=== PATIENT | male | born 1950 | race Caucasian/White ===

== ENCOUNTER 2023-08-25 12:37 | Inpatient (IN) | payer MEDICARE ==
[2023-08-25 12:51] LABS: Glucose,Whole Blood 105 mg/dL (70-110)
--- NOTE | 2023-08-25 12:58 | ED ---
General Adult HPI - General Stated complaint: POSS stroke Time Seen by Provider: 08/25/23 12:37 Source: patient, RN notes reviewed, old records reviewed - History of Present Illness Initial comments: A 73-year-old male who presents to the emergency department with strokelike symptoms. Patient was last seen normal the evening at 8:00. Family called him today and patient was unable to speak so called the ambulance. When EMS arrived patient was able to dress himself and walk on his own. Patient was unable to answer any questions it appears that he was unable to speak and he could not follow even the simplest commands but he could be guided to do different things as an example walk where they want him to go. Other history is available at this time and family will be coming later - Related Data Home Medications Medication Instructions Recorded Confirmed No Known Home Medications 08/25/23 08/25/23 Allergies Allergy/AdvReac Type Severity Reaction Status Date / Time No Known Allergies Allergy Verified 08/25/23 13:22 Review of Systems ROS Statement: Those systems with pertinent positive or pertinent negative responses have been documented in the HPI. ROS Other: All systems not noted in ROS Statement are negative. General Exam - General Exam Comments Initial Comments: GENERAL: Patient is well-developed and well-nourished. Patient is nontoxic and well- hydrated and is in no acute distress. ENT: Neck is soft and supple. No significant lymphadenopathy is noted. Oropharynx is clear. Moist mucous membranes. Neck has full range of motion without eliciting any pain. EYES: The sclera were anicteric and conjunctiva were pink and moist. Extraocular movements were intact and pupils were equal round and reactive to light. Eyelids were unremarkable. PULMONARY: Unlabored respirations. Good breath sounds bilaterally. No audible rales rhonchi or wheezing was noted. CARDIOVASCULAR: There is a regular rate and rhythm without any murmurs gallops or rubs. ABDOMEN: Soft and nontender with normal bowel sounds. SKIN: Skin is clear with no lesions or rashes and otherwise unremarkable. NEUROLOGIC: Patient is alert and oriented she is not speaking I am unable to evaluate orientation. Cranial nerves II through XII are grossly intact. Motor and sensory are also intact. Patient is unable to speak. Symmetrical smile. Patient does not understand cerebellar testing protocol MUSCULOSKELETAL: Normal extremities with adequate strength and full range of motion. No lower extremity swelling or edema. No calf tenderness. LYMPHATICS: No significant lymphadenopathy is noted PSYCHIATRIC: Unable to assess at this time Course Vital Signs 08/25/23 08/25/23 08/25/23 12:43 12:54 12:58 Temperature 98.1 F Pulse Rate 82 77 Respiratory 19 18 Rate Blood Pressure 158/127 158/127 147/107 O2 Sat by Pulse 98 98 96 Oximetry 08/25/23 08/25/23 08/25/23 13:13 13:28 13:43 Temperature Pulse Rate 68 65 70 Respiratory 18 18 17 Rate Blood Pressure 150/81 148/72 142/76 O2 Sat by Pulse 95 96 94 L Oximetry 08/25/23 08/25/23 08/25/23 13:58 14:13 14:28 Temperature Pulse Rate 74 65 66 Respiratory 17 18 18 Rate Blood Pressure 144/76 155/76 141/97 O2 Sat by Pulse 95 95 94 L Oximetry Medical Decision Making - Medical Decision Making EKG is interpreted by myself. EKG shows a sinus rhythm at 67 bpm KS interval 149 QRS 103 QT interval 375 QTc is 390. Patient EKG shows no ST segment elevation Was pt. sent in by a medical professional or institution ([facility], [employer], urgent care, hospital, or [facility]...) When possible be specific @ -No Did you speak to anyone other than the patient for history (EMS, parent, family, police, friend...)? What history was obtained from this source @ -EMS gave all the history since the patient was aphasic Did you review nursing and triage notes (agree or disagree)? Why? @ -I reviewed and agree with nursing and triage notes Were old charts reviewed (outside hosp., previous admission, EMS record, old EKG, old radiological studies, urgent care reports/EKG's, [facility] records)? Report findings @ -No old charts were reviewed Differential Diagnosis? @ -Differential CVA Ischemic stroke, hemorrhagic stroke, brain tumor, atypical migraine, Wernicke's encephalopathy, seizure, multiple sclerosis, meningitis, encephalitis, hypoglycemia, Guillain-Pineda, electrolytes disturbance, myasthenia gravis.... This is not meant to be an all-inclusive list EKG interpreted by me (3pts min.). @ -As above X-rays interpreted by me (1pt min.). @ -Chest x-ray shows no acute normality CT interpreted by me (1pt min.). @ -CT of the brain a frontal lobe infarct. CTA shows no acute abnormality U/S interpreted by me (1pt. min.). @ -None done What testing was considered but not performed or refused? (CT, X-rays, U/S, labs)? Why? @ -None What meds were considered but not given or refused? Why? @ -None Did you discuss the management of the patient with other professionals (professionals i.e. DrSiva, PA, [employer]ER, lab, RT, psych nurse, rn social services, weigher packing, teacher, juvenile corrections officer, correctional case manager)? Give summary @ -I spoke with Dr. Mi agreed that the patient did not qualify for any intervention he will adjust medical management. I spoke with sound physicians he agreed to admit the patient to the patient I consulted neurology Was smoking cessation discussed for >3mins.? @ -No Was critical care preformed (if so, how long)? @ -35 minutes Were there social determinants of health that impacted care today? How? (Homelessness, low income, unemployed, alcoholism, drug addiction, transporta tion, low edu. Level, literacy, decrease access to med. care, fci, rehab)? @ -No Was there de-escalation of care discussed even if they declined (Discuss DNR or withdrawal of care, Hospice)? DNR status @ -No What co-morbidities impacted this encounter? (DM, HTN, Smoking, COPD, CAD, Cancer, CVA, ARF, Chemo, Hep., AIDS, mental health diagnosis, sleep apnea, morbid obesity)? @ -None Was patient admitted / discharged? Hospital course, mention meds given and route, prescriptions, significant lab abnormalities, going to OR and other pertinent info. @ -Patient had an obvious stroke on the CT. I spoke with the neuro interventionalists and sound physicians patient will be admitted with neurology consult. Undiagnosed new problem with uncertain prognosis? @ -No Drug Therapy requiring intensive monitoring for toxicity (Heparin, Nitro, Insulin, Cardizem)? @ -No Were any procedures done? @ -No Diagnosis/symptom? @ -CVA Acute, or Chronic, or Acute on Chronic? @ -Acute Uncomplicated (without systemic symptoms) or Complicated (systemic symptoms)? @ -Complicated Side effects of treatment? @ -No Exacerbation, Progression, or Severe Exacerbation? @ -No Poses a threat to life or bodily function? How? (Chest pain, [place], [place], pneumonia, PE, COPD, DKA, ARF, appy, cholecystitis, CVA, Diverticulitis, Homicidal, Suicidal, threat to staff... and all critical care pts) @ -Yes this can lead to further stroke and morbidity or mortality - Lab Data Result diagrams: 08/25/23 12:43 Lab Results 08/25/23 08/25/23 08/25/23 Range/Units 12:43 12:43 12:49 WBC 7.1 (3.8-10.6) k/uL RBC 5.24 (4.30-5.90) m/uL Hgb 16.9 (13.0-17.5) gm/dL Hct 52.6 (39.0-53.0) % MCV 100.3 H (80.0-100.0) fL MCH 32.3 (25.0-35.0) pg MCHC 32.2 (31.0-37.0) g/dL RDW 13.5 (11.5-15.5) % Plt Count 130 L (150-450) k/uL MPV 9.2 Neutrophils % 64 % Lymphocytes % 22 % Monocytes % 8 % Eosinophils % 3 % Basophils % 1 % Neutrophils # 4.6 (1.3-7.7) k/uL Lymphocytes # 1.6 (1.0-4.8) k/uL Monocytes # 0.6 (0-1.0) k/uL Eosinophils # 0.2 (0-0.7) k/uL Basophils # 0.1 (0-0.2) k/uL PT 10.9 (10.0-12.5) sec INR 1.0 (<1.2) APTT 20.0 L (22.0-30.0) sec POC Glucose (mg/dL) 105 (70-110) mg/dL POC Glu Dental Appliance Mechanic ID Génesis Bates Troponin I (0.000-0.034) ng/mL 08/25/23 Range/Units 13:32 WBC (3.8-10.6) k/uL RBC (4.30-5.90) m/uL Hgb (13.0-17.5) gm/dL Hct (39.0-53.0) % MCV (80.0-100.0) fL MCH (25.0-35.0) pg MCHC (31.0-37.0) g/dL RDW (11.5-15.5) % Plt Count (150-450) k/uL MPV Neutrophils % % Lymphocytes % % Monocytes % % Eosinophils % % Basophils % % Neutrophils # (1.3-7.7) k/uL Lymphocytes # (1.0-4.8) k/uL Monocytes # (0-1.0) k/uL Eosinophils # (0-0.7) k/uL Basophils # (0-0.2) k/uL PT (10.0-12.5) sec INR (<1.2) APTT (22.0-30.0) sec POC Glucose (mg/dL) (70-110) mg/dL POC Glu Dental Appliance Mechanic ID Troponin I 0.079 H* (0.000-0.034) ng/mL Disposition Clinical Impression: Cerebrovascular accident (CVA) Disposition: ADMITTED IP TO THIS HOSP Referrals: None,Stated [Primary Care Provider] - 1-2 days Time of Disposition: 15:46
[2023-08-25] MEDS: SODIUM CHLORIDE 0.9% 500 ML 500 ML IV STA (13:01)
--- NOTE | 2023-08-25 13:04 | CT ---
EXAMINATION TYPE: CT brain wo con CT DLP: 1113.6 mGycm, Automated exposure control for dose reduction was used. DATE OF EXAM: 08/25/2023 12:58 PM COMPARISON: None. CLINICAL INDICATION:Male, 73 years old with history of Neuro deficit, acute, stroke suspected, CODE S TROKE TECHNIQUE: Brain: Axial CT images of the brain were obtained with coronal and sagittal reformats created and rev iewed. Contrast used: None. Oral contrast used: None. FINDINGS: Brain: Extra-axial spaces: No abnormal extra-axial fluid collections. Ventricular system: Within normal limits Cerebral parenchyma: Lopez-white matter loss of differentiation the left frontal lobe series 202 image 30, No acute intraparenchymal hemorrhage or mass effect. The lopez-white junction is well differenti ated. Cerebellum: Unremarkable. Mass effect: No evidence of midline shift. Intracranial vasculature: Atherosclerotic calcifications of the intracranial vessels. Soft tissues: Normal. Calvarium/osseous structures: No depressed skull fracture. Paranasal sinuses and mastoid air cells: Mild scattered paranasal sinus disease. Visualized orbits: Orbital contents are intact. IMPRESSION: Acute/subacute CVA involving the left frontal lobe. Findings communicated to Dr. Romaine Wilhelm MD on 08/25/2023 1:[address] Karson Galindo.
[2023-08-25 13:08] LABS: Basophils # (A) 0.1 k/uL (0-0.2); Basophils % (A) 1 %; Eosinophils # (A) 0.2 k/uL (0-0.7); Eosinophils % (A) 3 %; HCT 52.6 % (39.0-53.0); HGB 16.9 gm/dL (13.0-17.5); Lymphocytes # (A) 1.6 k/uL (1.0-4.8); Lymphocytes % (A) 22 %; MCH 32.3 pg (25.0-35.0); MCHC 32.2 g/dL (31.0-37.0); MCV 100.3 fL (80.0-100.0); Mean Platelet Volume 9.2; Monocytes # (A) 0.6 k/uL (0-1.0); Monocytes % (A) 8 %; Neutrophils # (A) 4.6 k/uL (1.3-7.7); Neutrophils % (A) 64 %; RBC 5.24 m/uL (4.30-5.90); RDW 13.5 % (11.5-15.5); WBC 7.1 k/uL (3.8-10.6)
--- NOTE | 2023-08-25 13:21 | CT ---
EXAMINATION TYPE: CT angio head neck CT DLP: 401 mGycm, Automated exposure control for dose reduction was used. DATE OF EXAM: 08/25/2023 1:14 PM COMPARISON: Same day CT CLINICAL INDICATION:Male, 73 years old with history of Neuro deficit, acute, stroke suspected; [facility], TECHNIQUE: Axially acquired helical CT angiogram of the head and neck was obtained with contrast. Axi al images are supplemented with 3D reconstructions and MIP images which were post-processed at an in dependent workstation. NASCET criteria used. Contrast used: mL of 65 cc [id number] Oral contrast used: None. FINDINGS: CTA HEAD: No evidence of acute intracranial hemorrhage, mass effect, or midline shift. The ventricles, sulci, a nd cisterns are unremarkable. Mild paranasal sinus mucosal thickening. The visualized portions of the internal carotid arteries, middle cerebral arteries, anterior cerebral arteries, and posterior cerebral arteries are patent. The basilar and vertebral arteries are patent. CTA NECK: Right Carotid System: The common carotid and external carotid arteries are patent. There is less than 25% stenosis at the c arotid bifurcation secondary to calcified/noncalcified plaque. The rest of the internal carotid arter y is patent. Left Carotid System: The common carotid and external carotid arteries are patent. There is less than 25% stenosis at the c arotid bifurcation secondary to calcified/noncalcified plaque. The rest of the internal carotid arter y is patent. Vertebral arteries are patent without evidence hemodynamically significant stenosis. There is a three-vessel aortic arch. The origins of the great vessels are patent. No evidence of hemo dynamically significant stenosis. Upper thorax: Centrilobular paraseptal emphysema changes in the lung apices.r right thyroid 5 mm nodu le. IMPRESSION: 1. No evidence of dissection of the cervical internal carotid arteries or vertebral arteries or any e vidence of significant stenosis at the carotid bifurcations. 2. No evidence of intracranial high-grade stenosis or intracranial aneurysm.
[2023-08-25 13:39] LABS: Prothrombin Time 10.9 sec (10.0-12.5)
[2023-08-25] MEDS ORDERED: ACETAMINOPHEN TAB 325 MG TAB PO PRN (15:30)
[2023-08-25] MEDS ORDERED: NALOXONE 0.4 MG/ML 1 ML VIAL IVP PRN (15:30)
--- NOTE | 2023-08-25 15:30 | XR ---
EXAMINATION TYPE: XR chest 2V DATE OF EXAM: 08/25/2023 3:14 PM CLINICAL INDICATION:Male, 73 years old with history of altered mental status; H COMPARISON: None TECHNIQUE: XR chest 2V Frontal and lateral views of the chest. FINDINGS: Lungs/Pleura: There is no evidence of pleural effusion, focal consolidation, or pneumothorax. Pulmonary vascularity: Unremarkable. Heart/mediastinum: Cardiomediastinal silhouette is unremarkable. Atherosclerotic calcifications are seen in the aorta. Musculoskeletal: No acute osseous pathology. IMPRESSION: No acute cardiopulmonary disease/process.
[2023-08-25 15:55] LABS: ALT 14 U/L (4-49); AST 26 U/L (17-59); African American GFR (CKD) >90 (>60 ml/min/1.73 sqM); Albumin 3.5 g/dL (3.5-5.0); Alkaline Phosphatase 93 U/L (38-126); Anion Gap 5 mmol/L; Blood Urea Nitrogen 12 mg/dL (9-20); Calcium 8.5 mg/dL (8.4-10.2); Carbon Dioxide 19 mmol/L (22-30); Chloride 111 mmol/L (98-107); Creatine Kinase 77 U/L (55-170); Glucose 94 mg/dL (74-99); Non-African American GFR(CKD) >90 (>60 ml/min/1.73 sqM); Potassium 4.9 mmol/L (3.5-5.1); Sodium 135 mmol/L (137-145); Total Bilirubin 0.5 mg/dL (0.2-1.3)
[2023-08-25] MEDS: ASPIRIN 325 MG TAB PO STA (16:05)
[2023-08-25] MEDS: ATORVASTATIN 80 MG TAB PO STA (16:05)
--- NOTE | 2023-08-25 16:09 | P.HPIM ---
History of Present Illness H&P Date: 08/25/23 History of Presenting Illness: Patient is a pleasant 73-year-old male with a past medical history of nicotine dependence approximately 1 pack of cigarettes or more daily for greater than 50 years. He does not follow with a PCP and does not take any medications on a daily basis. Presented to the emergency department via EMS for strokelike symptoms. Patient's last known normal was around 8 PM yesterday evening and this morning his fiNicole wilder, reports that she called him around 11:30 AM and he was unable to speak so she called EMS. Patient was found to have significant aphasia and difficulty following commands. Patient currently denies having any pain and his fiance Nicole reports patient had no complaints prior to going to bed last night and had no noted abnormalities until this morning as stated above. Upon arrival to the hospital patient underwent evaluation in the emergency department. Vital signs upon arrival show blood pressure 158/127, heart rate 82, respiratory rate 19, temp 98.1 F, and SpO2 of 98% on room air. Bzkyf-ab-cfmm glucose 105. EKG was completed showing normal sinus rhythm at 67 bpm with a right bundle branch block. CT brain was completed showing an acute/subacute CVA involving the left frontal lobe. CTA head was negative for acute intracranial process showing no evidence of intracranial high-grade stenosis or intracranial aneurysm. CTA neck showing no evidence of dissection of cervical internal carotid arteries or vertebral arteries or any evidence of significant stenosis at the carotid bifurcations. Labs completed and reviewed. CBC showing macrocytosis with MCV of 100.3 and thrombocytopenia with platelet count of 130. Coagulation profile showing low PTT of 20.0 otherwise normal findings. BMP showing non-anion gap metabolic acidosis with chloride of 111, bicarb of 19, and anion gap of 5. Liver profile unremarkable. Creatinine kinase normal findings at 77. Troponin was elevated at 0.079. Total protein was 6.0. Patient was admitted under our services with consultation to neurology. Review of systems: Limited ROS secondary to patient's mentation, inability to follow commands and significant aphasia. Information obtained from ED documentation and per patient's Nicole coleman. Physical exam: Vital signs reviewed and stable. General: Nontoxic, no distress and appears stated age. Derm: Skin warm and dry, normal coloration for ethnicity. Head: Atraumatic, normocephalic and symmetric. Eyes: EOMs intact, no lid lag, and anicteric sclera Mouth: no lip lesions, mucus membranes moist. Minimal right-sided facial droop noted. Cardiovascular: regular rate and rhythm with normal S1S2, soft systolic murmur, positive posterior tibial pulses bilaterally, and cap refill < 2 seconds. Lungs: Respirations even, regular, and unlabored on room air. Lungs CTA bilaterally, no rhonchi, no rales, no wheezing, and no accessory muscle usage. Abdominal: soft, nontender to palpation, no guarding, no appreciable organomegaly Ext: No gross muscle atrophy, no edema, no contractures. Movement and sensation intact. Neuro: Significant aphasia, with minimal right-sided facial droop. Movement and sensation of bilateral upper and lower extremities appear to be intact, patient unable to follow all commands but was able to move extremities when asked and appeared to have equal and symmetrical movement and strength but did not follow commands such as [id number] or [id number]. Unable to assess for arm drop as patient had difficult time understanding or following commands. Psych: Alert and oriented to person, place, time, and situation. Appropriate and pleasant affect. Assessment and Plan of Care: Acute/subacute CVA of the left frontal lobe with significant speech deficits and difficulties following commands Elevated troponin Thrombocytopenia Non-anion gap metabolic acidosis Nicotine dependence -Consult placed to neurology, discussed plan of care with neurologist, Dr. Stoner. -MRI brain and neck with and without contrast -Echocardiogram -Patient to remain on continuous telemetry monitoring. -Lipid profile and Hgb A1c with A.M labs. -NIH stroke scale with neuro checks every 4 hours and as needed -Aspirin 325 mg p.o. x 1 dose followed by 81 mg daily, Plavix 75 mg daily and atorvastatin 80 mg daily. -Allow for permissive hypertension over next 24 hours. -PT/OT consulted -Speech and language pathologist consulted for evaluation. -Fall precautions and provide pt with assistance as needed. -Will trend troponins. -Order placed for nicotine patch 21 mg daily. Strongly recommend smoking cessation. Data and imaging reviewed: As stated above in HPI The patient is admitted with an anticipated greater than 2 midnight stay for evaluation of acute/subacute CVA CODE STATUS: Full code DVT prophylaxis: Lovenox Discussed with: ED physician, patient, patient's fianc, and neurologist Anticipated discharge date: Pending clinical course Anticipated discharge place: Home versus stroke rehab Patient was seen independently by Nurse Practitioner. This document was prepared using [employer] dictation software. Please allow for errors in cold rolling supervisor while rare they do occur. .Nigel Mcclellan NP rendered care for this patient independently, reviewed the findings and plan as documented in the note above. I did not physically speak with or examine the patient on this date. Past Medical History History of Any Multi-Drug Resistant Organisms: None Reported Past Psychological History: No Psychological Hx Reported Smoking Status: Current every day smoker Past Alcohol Use History: None Reported Past Drug Use History: None Reported Medications and Allergies Home Medications Medication Instructions Recorded Confirmed Type No Known Home Medications 08/25/23 08/25/23 History Allergies Allergy/AdvReac Type Severity Reaction Status Date / Time No Known Allergies Allergy Verified 08/25/23 13:22 Physical Exam Vitals: Vital Signs Temp Pulse Resp BP Pulse Ox 08/25/23 14:28 66 18 141/97 94 L 08/25/23 14:13 65 18 155/76 95 08/25/23 13:58 74 17 144/76 95 08/25/23 13:43 70 17 142/76 94 L 08/25/23 13:28 65 18 148/72 96 08/25/23 13:13 68 18 150/81 95 08/25/23 12:58 77 18 147/107 96 08/25/23 12:54 98.1 F 82 19 158/127 98 08/25/23 12:43 158/127 98 Intake and Output 08/25/23 08/25/23 08/25/23 06:59 14:59 22:59 Other: Weight 77.111 kg Results CBC & Chem 7: 08/25/23 12:43 08/25/23 13:32 Labs: Abnormal Lab Results - Last 24 Hours (Table) 08/25/23 08/25/23 08/25/23 Range/Units 12:43 12:43 13:32 MCV 100.3 H (80.0-100.0) fL Plt Count 130 L (150-450) k/uL APTT 20.0 L (22.0-30.0) sec Troponin I 0.079 H* (0.000-0.034) ng/mL
[2023-08-25] MEDS: CLOPIDOGREL 75 MG TAB PO STA (17:14)
[2023-08-25] MEDS: NICOTINE 21MG/24HR PATCH TRANSDERM SCH (17:17)
--- NOTE | 2023-08-25 18:24 | P.CNNES ---
History of Present Illness Consult date: 08/25/23 Requesting physician: Nigel Mcclellan Reason for Consult: acute/subacute cva History of Present Illness: This is a 73-year-old gentleman who presented emergency department because of speech difficulty. He is accompanied with his fiance who provides the history. It seems the fimeño indicated with him via text around 11:30 in the morning but she stated that she was receiving messages that did not make sense and so she called him and he had severe speech difficulty. She called 911 and they brought him to our facility. Is normal state that she talk to him was around 1 AM today unsure what time he went to bed in which she usually goes to bed at 2 AM but she is unsure. He does not have any history of stroke or TIA in the past.. The fianc he does not have any medical issues and is not on any medication. He smokes a pack a day. No illicit drug use. In our facility some of the workup consisted of: Serum glucose is 94. I reviewed rest of the lab test Troponin is 0.079 and repeat is 1.067 CT of the head is reported as acute/subacute CVA involving the left frontal lobe. I personally reviewed the CT and I do appreciate the changes over the left frontal suggestive of likely stroke. CT angiography of the head and neck is reported as no evidence of dissection of cervical carotid artery or vertebral artery or any evidence of significant stenosis at the carotid bifurcation. No evidence of intracranial high-grade stenosis or intracranial aneurysm. EKG is sinus rhythm. A Code stroke was activated and the ED physician spoke with Dr. Mi (stroke attending) no IV thrombolytic and no intervention. Likely no IV thrombolytics since unknown exact last normal state likely more than 4-1/2 hours from the history. Review of Systems Limited but the positive and negative as per HPI. Past Medical History History of Any Multi-Drug Resistant Organisms: None Reported Past Psychological History: No Psychological Hx Reported Smoking Status: Current every day smoker Past Alcohol Use History: None Reported Past Drug Use History: None Reported Medications and Allergies Home Medications Medication Instructions Recorded Confirmed Type No Known Home Medications 08/25/23 08/25/23 History Allergies Allergy/AdvReac Type Severity Reaction Status Date / Time No Known Allergies Allergy Verified 08/25/23 13:22 Physical Examination - Vital Signs Vital Signs: Vital Signs Temp Pulse Resp BP Pulse Ox 08/25/23 17:20 64 16 162/86 94 L 08/25/23 14:28 66 18 141/97 94 L 08/25/23 14:13 65 18 155/76 95 08/25/23 13:58 74 17 144/76 95 08/25/23 13:43 70 17 142/76 94 L 08/25/23 13:28 65 18 148/72 96 08/25/23 13:13 68 18 150/81 95 08/25/23 12:58 77 18 147/107 96 08/25/23 12:54 98.1 F 82 19 158/127 98 08/25/23 12:43 158/127 98 Intake and Output 08/25/23 08/25/23 08/25/23 06:59 14:59 22:59 Other: Weight 77.111 kg General: Lying in bed and is not in acute distress. HENT: Supple neck. Neuro: Limited. Patient is awake. He is severely aphasia. He would say "Yes". He would follow some simple commands and that is through mimicking movement. Pupils are round, equal and reactive to light. EOM intact and no nystagmus. No facial weakness. Motor: He lifting all extremities above gravity equally. Could not assess individual muscle strength because of cooperation. Normal tone and bulk. Reflex: 2+ throughout. Plantars: Mute bilaterally. Results - Laboratory Findings CBC and BMP: 08/25/23 12:43 08/25/23 13:32 Abnormal Lab Findings: Abnormal Labs 08/25/23 08/25/23 08/25/23 12:43 12:43 13:32 MCV 100.3 H Plt Count 130 L APTT 20.0 L Sodium 135 L Chloride 111 H Carbon Dioxide 19 L Creatinine 0.64 L Troponin I Total Protein 6.0 L 08/25/23 08/25/23 13:32 15:52 MCV Plt Count APTT Sodium Chloride Carbon Dioxide Creatinine Troponin I 0.079 H* 0.067 H* Total Protein Assessment and Plan Assessment: This is a 73-year-old gentleman who presents because of severe aphasia. Per fimeño she communicate with him around 11:30 AM via text and he was not making sense so she called him and he had very speech difficulty. Last normal she spoke with him was 1 AM today and she is unsure what time he went to bed which she usually goes to bed at [address] of the head shows acute to subacute stroke over the left frontal. Code stroke was activated no IV thrombolytic and no intervention recommended. Acute to subacute ischemic stroke (left frontal) and the patient has severe expressive aphasia. Tobacco use Plan: Patient was given aspirin 325 once daily. Received Plavix 75 mg once by the primary team. He was started on aspirin 81 mg and Plavix 75 mg daily by the primary team. I changed the aspirin to 325 mg daily. Prior to this the patient was not on any antiplatelet. Patient was given Lipitor 80 mg once and was started on 80 mg daily. Ordered MRI of the brain without. Echo, lipid panel hemoglobin A1c are ordered and pending Continue neurochecks Cardiac monitoring Recommend permissive hypertension for 24 to 48 hours and treat the blood pressure of the systolic blood pressure is more than 220 and diastolic is more than 110. PT, OT and TRADER are consulted Will defer the rest of the medical management the primary team Was counseled on tobacco cessation. For DVT prophylaxis patient is on Lovenox Plan discussed with the patient and his fiance was at bedside as well as the primary team nurse practitioner Thank for the consultation Time with Patient: Greater than 30
[2023-08-26] MEDS: PANTOPRAZOLE 40 MG TABLET PO SCH (06:45)
--- NOTE | 2023-08-26 07:08 | CA ---
Transthoracic Echo Report Name: Shane Daugherty Age: 73 Gender: M : 1950 Exam Date: 08/25/2023 16:04 Exam Location: [facility] Ht (in): 68 Wt (lb): 170 Ordering Physician: Nigel Mcclellan Attending/Referring Phys: Roll Hauler Lisa Carrion RDCS Procedure CPT: Indications: acute/subacute CVA Cardiac Hx: Technical Quality: Technically difficult study Contrast 1: Definity Total Dose (mL): 2 Contrast 2: Total Dose (mL): MEASUREMENTS (Male / Female) Normal Values 2D ECHO LV Diastolic Diameter PLAX 4.8 cm 4.2 - 5.9 / 3.9 - 5.3 cm LV Systolic Diameter PLAX 3.2 cm IVS Diastolic Thickness 1.1 cm 0.6 - 1.0 / 0.6 - 0.9 cm LVPW Diastolic Thickness 1.1 cm 0.6 - 1.0 / 0.6 - 0.9 cm LV Relative Wall Thickness 0.4 LVOT Diameter 2.2 cm DOPPLER AV Peak Velocity 102.8 cm/s AV Peak Gradient 4.2 mmHg AV Mean Velocity 65.0 cm/s AV Mean Gradient 1.9 mmHg AV Velocity Time Integral 20.9 cm MV Area PHT 2.6 cm??? Mitral E Point Velocity 59.6 cm/s Mitral A Point Velocity 90.6 cm/s Mitral E to A Ratio 0.7 MV Deceleration Time 287.8 ms PV Peak Velocity 79.2 cm/s PV Peak Gradient 2.5 mmHg FINDINGS Left Ventricle Left ventricular ejection fraction is estimated at 55 to 60 %. Left ventricular cavity size normal. Left ventricular wall thickness normal. No obvious regional wall motion abnormalities. Right Ventricle Right ventricle not well visualized. Unable to estimate the right ventricular systolic pressure. Right Atrium Right atrium not well visualized. Left Atrium Normal left atrial size. Mitral Valve Structurally normal mitral valve. No mitral stenosis, regurgitation or prolapse.mitral annular calcification. Aortic Valve No aortic valve stenosis or regurgitation.aortic valve not well visualized. Tricuspid Valve Structurally normal tricuspid valve. No tricuspid stenosis. No tricuspid regurgitation. Pulmonic Valve Pulmonic valve not well visualized. Pericardium No pericardial effusion. Aorta Aortic annulus normal. Ascending aorta not well visualized. CONCLUSIONS Technically difficult study. Definity ECHO contrast used for improved visualization of the endocardial borders (inadequate visualization of two or more contiguous segments). Normal left ventricle size and systolic function Very limited Doppler study Previewed by: Dr. Flash Parikh MD (Electronically Signed) Final Date: 26 August 2023 07:07
[2023-08-26] MEDS ORDERED: ASPIRIN 81 MG PO SCH (09:00)
[2023-08-26] MEDS: ASPIRIN 325 MG TAB PO SCH (09:04)
[2023-08-26] MEDS: ENOXAPARIN 40 MG/0.4 ML SYRINGE SQ SCH (09:04)
[2023-08-26] MEDS: CLOPIDOGREL 75 MG TAB PO SCH (09:04)
[2023-08-26] MEDS: ATORVASTATIN 80 MG TAB PO SCH (09:04)
--- NOTE | 2023-08-26 10:59 | P.PN ---
Subjective Progress Note Date: 08/26/23 Hospital Course: Patient is a pleasant 73-year-old male with a past medical history of nicotine dependence approximately 1 pack of cigarettes or more daily for greater than 50 years. He does not follow with a PCP and does not take any medications on a daily basis. Presented to the emergency department via EMS for strokelike symptoms. Patient's last known normal was around 8 PM yesterday evening and this morning his fianc, Nicole, reports that she called him around 11:30 AM and he was unable to speak so she called EMS. Patient was found to have significant aphasia and difficulty following commands. Patient currently denies having any pain and his fiance Nicole reports patient had no complaints prior to going to bed last night and had no noted abnormalities until this morning as stated above. Upon arrival to the hospital patient underwent evaluation in the emergency department. Vital signs upon arrival show blood pressure 158/127, heart rate 82, respiratory rate 19, temp 98.1 F, and SpO2 of 98% on room air. [id number] glucose 105. EKG was completed showing normal sinus rhythm at 67 bpm with a right bundle branch block. CT brain was completed showing an acute/subacute CVA involving the left frontal lobe. CTA head was negative for acute intracranial process showing no evidence of intracranial high-grade stenosis or intracranial aneurysm. CTA neck showing no evidence of dissection of cervical internal carotid arteries or vertebral arteries or any evidence of significant stenosis at the carotid bifurcations. Labs completed and reviewed. CBC showing macrocytosis with MCV of 100.3 and thrombocytopenia with platelet count of 130. Coagulation profile showing low PTT of 20.0 otherwise normal findings. BMP showing non-anion gap metabolic acidosis with chloride of 111, bicarb of 19, and anion gap of 5. Liver profile unremarkable. Creatinine kinase normal findings at 77. Troponin was elevated at 0.079. Total protein was 6.0. Patient was admitted under our services with consultation to neurology. Physical exam: Patient was seen and fully evaluated at bedside this morning. His speech has improved in regards to being more clear and comprehendible, however patient with significant expressive aphasia and unable to identify common objects such as TV or cup. He is following commands better and perform [id number] without any difficulties and no arm drop noted. Vital signs reviewed and stable. General: Nontoxic, no distress and appears stated age. Derm: Skin warm and dry, normal coloration for ethnicity. Head: Atraumatic, normocephalic and symmetric. Eyes: EOMs intact, no lid lag, and anicteric sclera Mouth: no lip lesions, mucus membranes moist. Minimal right-sided facial droop noted. Cardiovascular: regular rate and rhythm with normal S1S2, soft systolic murmur, positive posterior tibial pulses bilaterally, and cap refill < 2 seconds. Lungs: Respirations even, regular, and unlabored on room air. Lungs CTA bilaterally, no rhonchi, no rales, no wheezing, and no accessory muscle usage. Abdominal: soft, nontender to palpation, no guarding, no appreciable organomegaly Ext: No gross muscle atrophy, no edema, no contractures. Movement and sensation intact. Neuro: Moderate expressive aphasia. Facial droop resolved. Patient better able to follow some commands but still with significant difficulties with aphasia and comprehension. Psych: Alert and oriented to person, place, time, and situation. Appropriate and pleasant affect. Assessment and Plan of Care: Acute/subacute CVA of the left frontal lobe with significant speech deficits and difficulties following commands Elevated troponins, flat secondary to acute CVA Thrombocytopenia, resolved Non-anion gap metabolic acidosis, resolved Nicotine dependence -Neurology following, discussed plan of care with neurologist, Dr. Stoner. -MRI brain without contrast -Echocardiogram with showing a preserved EF of 55 to 60% with no reported structural or valvular abnormalities. -Patient to remain on continuous telemetry monitoring. -Lipid profile and Hgb A1c pending -NIH stroke scale with neuro checks every 4 hours and as needed -Aspirin 81 mg daily, Plavix 75 mg daily and atorvastatin 80 mg daily. -Allow for permissive hypertension over next 24 hours. -PT/OT consulted -Speech and language pathologist consulted for evaluation. -Fall precautions and provide pt with assistance as needed. -Order placed for nicotine patch 21 mg daily. Strongly recommend smoking cessation. Data and imaging reviewed: Echocardiogram with showing a preserved EF of 55 to 60% with no reported structural or valvular abnormalities. Labs completed and reviewed. CBC unremarkable with WBC count of 10.3, hemoglobin 16.1, and platelet count of 298.. BMP showing sodium 135, potassium 4.2, chloride of 104, bicarb of 26, and anion gap of 5. Renal function unremarkable. Liver profile normal findings. TSH was 1.040. Troponins trended overnight and flat resulting at 0.079, 0.067, and 0.068. Vital signs reviewed. Blood pressure 174/78, heart rate 73, respiratory rate 16, temp 96.9 F, and SpO2 of 93% on room air. If patient continues to have elevated blood pressures may consider starting patient on antihypertensive tomorrow morning. CODE STATUS: Full code DVT prophylaxis: Lovenox Anticipated discharge date: Pending clinical course Anticipated discharge place: Inpatient rehab Patient was seen independently by Nurse Practitioner. This document was prepared using [employer] dictation software. Please allow for errors in tube rebuilder while rare they do occur. Nigel Mcclellan NP rendered care for this patient independently, reviewed the findings and plan as documented in the note above. I did not physically speak with or examine the patient on this date. Objective - Vital Signs Vital signs: Vital Signs Temp 97.9 F 08/26/23 03:28 Pulse 66 08/26/23 03:28 Resp 14 08/26/23 03:28 BP 172/81 08/26/23 03:28 Pulse Ox 96 08/26/23 03:28 FiO2 Intake & Output 08/25/23 08/26/23 08/26/23 18:59 06:59 18:59 Weight 77.111 kg 79.6 kg - Labs CBC & Chem 7: 08/26/23 12:25 08/26/23 12:25 Labs: Abnormal Lab Results - Last 24 Hours (Table) 08/25/23 08/25/23 08/25/23 Range/Units 12:43 12:43 13:32 MCV 100.3 H (80.0-100.0) fL Plt Count 130 L (150-450) k/uL APTT 20.0 L (22.0-30.0) sec Sodium 135 L (137-145) mmol/L Chloride 111 H (98-107) mmol/L Carbon Dioxide 19 L (22-30) mmol/L Creatinine 0.64 L (0.66-1.25) mg/dL Troponin I (0.000-0.034) ng/mL Total Protein 6.0 L (6.3-8.2) g/dL 08/25/23 08/25/23 08/25/23 Range/Units 13:32 15:52 18:46 MCV (80.0-100.0) fL Plt Count (150-450) k/uL APTT (22.0-30.0) sec Sodium (137-145) mmol/L Chloride (98-107) mmol/L Carbon Dioxide (22-30) mmol/L Creatinine (0.66-1.25) mg/dL Troponin I 0.079 H* 0.067 H* 0.068 H* (0.000-0.034) ng/mL Total Protein (6.3-8.2) g/dL
--- NOTE | 2023-08-26 13:04 | P.CONS ---
History of Present Illness - Reason for Consult Consult date: 08/26/23 rehab recommendations - Chief Complaint CVA - History of Present Illness PMR Consult Patient is a 73 y/o right handed male who lives with his fiance in a 2 story home with basement, 2-3 MOSES with bed/bath on 1st floor. He was independent prior to admission, drives. He has family support. History is per fiance and family (sisters present as well). He also has 2 children. Patient presented emergency department because of speech difficulty. Shila called 911 and they brought him to our facility. Serum glucose is 94. I reviewed rest of the lab test Troponin is 0.079 and repeat is 1.067. CT of the head is reported as acute/subacute CVA involving the left frontal lobe. I personally reviewed the CT and I do appreciate the changes over the left frontal suggestive of likely stroke. CT angiography of the head and neck is reported as no evidence of dissection of cervical carotid artery or vertebral artery or any evidence of significant stenosis at the carotid bifurcation. No evidence of intracranial high-grade stenosis or intracranial aneurysm. EKG is sinus rhythm. No IV thrombolytic and no intervention. Neurology consulted. MRI pending. PM&R consulted for rehab recommendations, patient has aphasia, min assist with transfer, gait 20 ft RW, bed mobility supervision. He has aphasia and his answers to yes/no are at times inconsistent, but he denies any issues such as [place], CP, SOB, abdominal pain or other issues. Per his family, had a BM yesterday. Review of Systems reviewed, negative unless stated above; limited by aphasia Past Medical History History of Any Multi-Drug Resistant Organisms: None Reported Past Psychological History: No Psychological Hx Reported Smoking Status: Current every day smoker Past Alcohol Use History: None Reported Past Drug Use History: None Reported Medications and Allergies Home Medications Medication Instructions Recorded Confirmed Type No Known Home Medications 08/25/23 08/25/23 History Allergies Allergy/AdvReac Type Severity Reaction Status Date / Time No Known Allergies Allergy Verified 08/25/23 13:22 Physical Exam Vitals: Vital Signs Temp Pulse Pulse Resp BP BP Pulse Ox 08/26/23 09:00 96.9 F L 73 16 174/78 93 L 08/26/23 03:28 97.9 F 66 14 172/81 96 08/26/23 01:59 66 08/25/23 23:31 98.0 F 69 16 160/77 95 08/25/23 22:40 66 08/25/23 21:00 71 20 155/76 94 L 08/25/23 20:00 68 19 136/74 98 08/25/23 17:20 64 16 162/86 94 L 08/25/23 14:28 66 18 141/97 94 L 08/25/23 14:13 65 18 155/76 95 08/25/23 13:58 74 17 144/76 95 08/25/23 13:43 70 17 142/76 94 L 08/25/23 13:28 65 18 148/72 96 08/25/23 13:13 68 18 150/81 95 08/25/23 12:58 77 18 147/107 96 08/25/23 12:54 98.1 F 82 19 158/127 98 08/25/23 12:43 158/127 98 Intake and Output 08/25/23 08/26/23 08/26/23 22:59 06:59 14:59 Intake Total 180 Balance 180 Intake: Oral 180 Other: # Voids 2 Weight 77.111 kg 79.6 kg General: WDWN, male HEENT: NC/AT Cardio: no cardiac distress, Calves supple, non tender, no cords, no significant LE edema Pulm: Even and non labored respirations on RA GI: soft, non tender MSK: Neuro: Alert and Oriented x 3 (able to say 2023 and in a hospital, but not able to give month) Speech is clear but aphasic at times. He is able to repeat "no ifs ands or buts" and name 3/3 objects. He does NOT follow 3 step commands, but able to follow 1-2 step commands MMT: grossly 4/5 bilateral UE/ LE DTR 2+ UE/LE Finger to nose and heel to webber are intact Skin: warm and dry Psych: calm, cooperative Results CBC & Chem 7: 08/26/23 12:25 08/26/23 12:25 Labs: Abnormal Lab Results - Last 24 Hours (Table) 08/25/23 08/25/23 08/25/23 Range/Units 12:43 12:43 13:32 MCV 100.3 H (80.0-100.0) fL Plt Count 130 L (150-450) k/uL APTT 20.0 L (22.0-30.0) sec Sodium 135 L (137-145) mmol/L Chloride 111 H (98-107) mmol/L Carbon Dioxide 19 L (22-30) mmol/L Creatinine 0.64 L (0.66-1.25) mg/dL Troponin I (0.000-0.034) ng/mL Total Protein 6.0 L (6.3-8.2) g/dL 08/25/23 08/25/23 08/25/23 Range/Units 13:32 15:52 18:46 MCV (80.0-100.0) fL Plt Count (150-450) k/uL APTT (22.0-30.0) sec Sodium (137-145) mmol/L Chloride (98-107) mmol/L Carbon Dioxide (22-30) mmol/L Creatinine (0.66-1.25) mg/dL Troponin I 0.079 H* 0.067 H* 0.068 H* (0.000-0.034) ng/mL Total Protein (6.3-8.2) g/dL Assessment and Plan Assessment: # acute/ subacute CVA involving the left frontal lobe -comprehensive PT/OT/HUMAN RELATIONS PROFESSOR -No obvious weakness but difficulty to fully assess given issues following commands - MRI brain is pending # Expressive aphasia # Diet-regular # Tobacco use -encourage cessation # HTN # Elevated troponins # DVT Prophylaxis- Levonox # Your medical dx and management Dispo: Recommend IPR when medically stable; will need insurance approval for IPR. Patient seen and examined by Dr Chun, note prepped by Lisa Romeo PA-C
[2023-08-26 13:25] LABS: ALT 14 U/L (4-49); AST 25 U/L (17-59); African American GFR (CKD) >90 (>60 ml/min/1.73 sqM); Albumin 3.9 g/dL (3.5-5.0); Alkaline Phosphatase 91 U/L (38-126); Anion Gap 5 mmol/L; Blood Urea Nitrogen 11 mg/dL (9-20); Calcium 8.9 mg/dL (8.4-10.2); Carbon Dioxide 26 mmol/L (22-30); Chloride 104 mmol/L (98-107); Glucose 82 mg/dL (74-99); Magnesium 2.1 mg/dL (1.6-2.3); Non-African American GFR(CKD) >90 (>60 ml/min/1.73 sqM); Potassium 4.2 mmol/L (3.5-5.1); Sodium 135 mmol/L (137-145); Total Bilirubin 1.1 mg/dL (0.2-1.3); Total Protein 6.4 g/dL (6.3-8.2)
[2023-08-26 13:26] LABS: HCT 48.4 % (39.0-53.0); HGB 16.1 gm/dL (13.0-17.5); MCH 32.9 pg (25.0-35.0); MCHC 33.2 g/dL (31.0-37.0); MCV 99.2 fL (80.0-100.0); Mean Platelet Volume 7.5; RBC 4.88 m/uL (4.30-5.90); RDW 13.4 % (11.5-15.5); WBC 10.3 k/uL (3.8-10.6)
[2023-08-26 13:30] LABS: Platelet Count 298 k/uL (150-450)
[2023-08-26 13:32] LABS: Platelet Count 130 k/uL (150-450)
[2023-08-26 14:36] VITALS: BMI 26.6
--- NOTE | 2023-08-26 16:27 | MR ---
EXAMINATION TYPE: MR brain wo con DATE OF EXAM: 08/26/2023 4:10 PM CLINICAL INDICATION:Male, 73 years old with history of stroke. expressive aphasia; PHH, Stroke. Expre ssive aphasia COMPARISON: 08/25/2023.. TECHNIQUE: Multi planar, multi sequence imaging was performed through the brain including: T1, T2, In version recovery, Diffusion weighted imaging, and gradient echo imaging. No gadolinium was given. FINDINGS: The lizama-white junctions, ventricular system, basal cisterns appear unremarkable. Scattered foci of high T2 signal intensity are seen within the periventricular white matter. Midline structures show n o abnormality. Diffusion-weighted imaging shows restricted diffusion within the left frontal lobe.. T he susceptibility weighted images do not reveal any evidence for micro-hemorrhage. The bone marrow signal is within normal limits. Paranasal sinuses and mastoid air cells: Moderate right maxillary sinus paranasal sinus disease. Visualized orbits: Orbital contents are intact. IMPRESSION: 1. Acute/subacute CVA involving the left frontal lobe in the same area seen on CT. 2. Nonspecific white matter changes, likely secondary to small vessel ischemic disease.
--- NOTE | 2023-08-26 18:25 | P.PN ---
Subjective Progress Note Date: 08/26/23 I am following up with the patient and he is accompanied by his fiance and it seems the patient says speech is improving today compared to yesterday. He is verbalizing more. He does feel like he is improving himself. No new neurological issues. Objective - Vital Signs Vital signs: Vital Signs Temp 97.4 F L 08/26/23 12:00 Pulse 65 08/26/23 12:00 Resp 16 08/26/23 12:00 BP 172/77 08/26/23 12:00 Pulse Ox 94 L 08/26/23 12:00 FiO2 Intake & Output 08/25/23 08/26/23 08/26/23 18:59 06:59 18:59 Intake Total 360 Output Total 900 Balance -540 Weight 77.111 kg 79.6 kg 79.6 kg Intake: Oral 360 Output: Urine 900 Other: # Voids 2 - Exam General: Sitting in a chair and is not in acute distress. HENT: Supple neck. Neuro: Limited. Patient is awake. He correctly stated his name and. He is able to name pen and phone correctly. Patient is following simple commands better today compared to yesterday. He continues to have expressive aphasia that seems moderate and better today compared to yesterday. Pupils are round, equal and reactive to light. EOM intact and no nystagmus. No facial weakness. Motor: He lifting all extremities above gravity equally. Could not assess individual muscle strength because of cooperation. Normal tone and bulk. Reflex: 2+ throughout. Plantars: Mute bilaterally. In our facility some of the workup consisted of: TSH: 1.040 CT of the head is reported as acute/subacute CVA involving the left frontal lobe. I personally reviewed the CT and I do appreciate the changes over the left frontal suggestive of likely stroke. CT angiography of the head and neck is reported as no evidence of dissection of cervical carotid artery or vertebral artery or any evidence of significant stenosis at the carotid bifurcation. No evidence of intracranial high-grade stenosis or intracranial aneurysm. EKG is sinus rhythm. 2D echo is reported as technically difficult study. Normal left ventricular size systolic function. The very limited Doppler study. - Labs CBC & Chem 7: 08/26/23 12:25 08/26/23 12:25 Labs: Abnormal Lab Results - Last 24 Hours (Table) 08/25/23 08/25/2324 Range/Units 12:43 18:46 12:25 Plt Count 130 L (150-450) k/uL Sodium 135 L (137-145) mmol/L Troponin I 0.068 H* (0.000-0.034) ng/mL Assessment and Plan Assessment: This is a 73-year-old gentleman who presents because of severe aphasia. Per jared she communicate with him around 11:30 AM via text and he was not making sense so she called him and he had very speech difficulty. Last normal she spoke with him was 1 AM today and she is unsure what time he went to bed which she usually goes to bed at [address] of the head shows acute to subacute stroke over the left frontal. Code stroke was activated no IV thrombolytic and no intervention recommended. Acute to subacute ischemic stroke (left frontal) and the patient has severe expressive aphasia---today there is improvement in speech compared to yesterday. Unknown etiology of stroke at this time. Tobacco use Plan: Continue aspirin 325 daily, Plavix 75 mg daily. Patient was not on any antiplatelets prior to this. Continue Lipitor 80 mg daily and was not on any statin prior to this. Pending MRI of the brain Pending lipid panel and hemoglobin A1c Will consult cardiology for a transesophageal echocardiogram Recommend a 30-day event monitor of unknown source of the stroke to rule out any A-fib or flutter. Continue neurochecks Cardiac monitoring Recommend permissive hypertension for 24 to 48 hours and treat the blood pressure of the systolic blood pressure is more than 220 and diastolic is more than 110. PT, OT and M[employer]IPLE DRUM SANDER are consulted Will defer the rest of the medical management the primary team Was counseled on tobacco cessation. For DVT prophylaxis patient is on Lovenox Plan discussed with the patient and his fiance was at bedside as well as the primary team nurse practitioner Time with Patient: Less than 30
[2023-08-26 19:33] LABS: Chol/HDL Ratio 3.29 Ratio; LDL Cholesterol,Calculated 95.9 mg/dL (0.0-131.0); VLDL Calculation 17.46 mg/dL (5.00-40.00)
--- NOTE | 2023-08-27 09:49 | P.CRDCN ---
History of Present Illness Consult date: 08/27/23 Reason for Consult (text): ROBERT History of present illness: This is a 73-year-old male with no previous past medical history. We have been asked to evaluate the patient for ROBERT. Patient presented to the hospital on 08/24 with strokelike symptoms involving speech and has been diagnosed with acute to subacute ischemic stroke in the left frontal lobe with expressive aphasia. We have been asked to evaluate the patient for ROBERT to rule out cardiac source of stroke. Patient admits to smoking. He denies having any chest pain or shortness of breath. He still has some expressive aphasia but apparently this is improved. Blood pressure 158/77, heart rate 64, pulse ox 92% on room air. EKG: Sinus rhythm with incomplete right bundle branch block Chest x-ray: No acute process Laboratory studies: WBC 10.3, hemoglobin 16.1. Potassium 4.2, creatinine 0.72. Troponins 0.079, 0.067 and 0.068. Triglycerides 87, cholesterol 163, LDL 95. TSH 1.04. MRI of the brain reveals acute/subacute CVA involving the left frontal lobe. Nonspecific white matter changes secondary to small vessel ischemic disease. CTA head and neck revealed no evidence of dissection of the cervical internal carotid arteries or vertebral arteries or any evidence of significant stenosis at the carotid bifurcations. No evidence of intracranial high-grade stenosis or intracranial aneurysm. Echocardiogram is a technically difficult study. Normal left ventricular size and systolic function. Very limited Doppler study. Home cardiac medications: None Review Of Systems: At the time of my exam: CONSTITUTIONAL: Denies fever or chills. HEENT: Denies blurred vision, vision changes, or eye pain. Denies hemoptysis CARDIOVASCULAR: Denies chest pain. Denies orthopnea. Denies PND. Denies palpitations RESPIRATORY: Denies shortness of breath. GASTROINTESTINAL: Denies abdominal pain. Denies nausea or vomiting. HEMATOLOGIC: Denies bleeding disorders. GENITOURINARY: Denies any blood in urine. SKIN: Denies puritis. Denies rash. Physical examination: Gen: This is a 73-year-old male in no acute distress VS: reviewed HEENT: Head is atraumatic, normocephalic. Pupils equal, round. Sclerae is anicteric. NECK: Supple. No JVD. LUNGS: Clear to auscultation. No wheezes or rhonchi. No intercostal retractions. HEART: Regular rate and rhythm. No murmur. ABDOMEN: Soft No tenderness. EXTREMITIES: No pedal edema. No calf tenderness. NEUROLOGICAL: Patient is awake, alert and oriented x3. Assessment: Acute or subacute ischemic CVA involving the left frontal lobe likely embolic Hypertension Elevated troponins, flat secondary to acute CVA Tobacco use and dependence Plan: Patient will be scheduled for ROBERT on Thursday with Dr. Matthew Schneider. after midnight Plan for event monitor at the time of discharge to rule out atrial fibrillation. This will be obtained on Thursday from the office. Further recommendations to follow based upon clinical course Smoking cessation. Patient will be provided with the [employer] quit line information at discharge. Thank you kindly for this consultation. Nurse practitioner note has been reviewed, I agree with documented findings and plan of care. Patient was seen and examined. Past Medical History History of Any Multi-Drug Resistant Organisms: None Reported Past Psychological History: No Psychological Hx Reported Smoking Status: Current every day smoker Past Alcohol Use History: None Reported Past Drug Use History: None Reported Medications and Allergies Home Medications Medication Instructions Recorded Confirmed Type No Known Home Medications 08/25/23 08/25/23 History Allergies Allergy/AdvReac Type Severity Reaction Status Date / Time No Known Allergies Allergy Verified 08/25/23 13:22 Physical Exam Vitals: Vital Signs Temp Pulse Resp BP Pulse Ox 08/27/23 03:49 97.2 F L 64 16 158/77 92 L 08/27/23 01:44 66 16 08/26/23 23:18 97.6 F 66 16 165/74 94 L 08/26/23 20:00 97.1 F L 65 16 168/80 94 L 08/26/23 16:00 59 L 16 171/80 94 L 08/26/23 12:00 97.4 F L 65 16 172/77 94 L 08/26/23 09:00 96.9 F L 73 16 174/78 93 L Intake and Output 08/26/23 08/27/23 08/27/23 22:59 06:59 14:59 Intake Total 180 Output Total 1650 Balance -1470 Intake: Oral 180 Output: Urine 1650 Other: Voiding Method External Catheter External Catheter Weight 73 kg Results 08/26/23 12:25 08/26/23 12:25 Cardiac Enzymes 08/26/23 Range/Units 12:25 AST 25 (17-59) U/L Lipids 08/26/23 Range/Units 12:25 Triglycerides 87.30 (0.00-149.00) mg/dL Cholesterol 163.00 (0.00-200.00) mg/dL HDL Cholesterol 49.60 (40.00-60.00) mg/dL Cholesterol/HDL Ratio 3.29 Ratio CBC 08/25/23 08/26/23 Range/Units 12:43 12:25 WBC 10.3 (3.8-10.6) k/uL RBC 4.88 (4.30-5.90) m/uL Hgb 16.1 (13.0-17.5) gm/dL Hct 48.4 (39.0-53.0) % Plt Count 130 L 298 D (150-450) k/uL Comprehensive Metabolic Panel 08/26/23 Range/Units 12:25 Sodium 135 L (137-145) mmol/L Potassium 4.2 (3.5-5.1) mmol/L Chloride 104 (98-107) mmol/L Carbon Dioxide 26 (22-30) mmol/L BUN 11 (9-20) mg/dL Creatinine 0.72 (0.66-1.25) mg/dL Glucose 82 (74-99) mg/dL Calcium 8.9 (8.4-10.2) mg/dL AST 25 (17-59) U/L ALT 14 (4-49) U/L Alkaline Phosphatase 91 (38-126) U/L Total Protein 6.4 (6.3-8.2) g/dL Albumin 3.9 (3.5-5.0) g/dL Current Medications Generic Name Dose Route Start Last Admin Trade Name Freq PRN Reason Stop Dose Admin Acetaminophen 650 mg 08/25/23 15:30 Acetaminophen Tab 325 Mg Tab PO Q6HR PRN Mild Pain or Fever > 100.5 Aspirin 325 mg 08/26/23 09:00 08/26/23 09:04 Aspirin 325 Mg Tab PO 325 mg DAILY CRYS Administration Atorvastatin Calcium 80 mg 08/26/23 09:00 08/26/23 09:04 Atorvastatin 80 Mg Tab PO 80 mg DAILY CRYS Administration Clopidogrel Bisulfate 75 mg 08/26/23 09:00 08/26/23 09:04 Clopidogrel 75 Mg Tab PO 75 mg DAILY CRYS Administration Enoxaparin Sodium 40 mg 08/26/23 09:00 08/26/23 09:04 Enoxaparin 40 Mg/0.4 Ml Syringe SQ 40 mg DAILY CRYS Administration Naloxone HCl 0.2 mg 08/25/23 15:30 Naloxone 0.4 Mg/Ml 1 Ml Vial IVP Q2M PRN Opioid Reversal Nicotine 1 patch 08/25/23 16:15 08/26/23 09:04 Nicotine 21mg/24hr Patch TRANSDERM 1 patch DAILY CRYS Administration Pantoprazole Sodium 40 mg 08/26/23 07:30 08/27/23 06:06 Pantoprazole 40 Mg Tablet PO Not Given AC-[id number] CRYS Intake and Output 08/26/23 08/27/23 08/27/23 22:59 06:59 14:59 Intake Total 180 Output Total 1650 Balance -1470 Intake: Oral 180 Output: Urine 1650 Other: Voiding Method External Catheter External Catheter Weight 73 kg 08/26/23 12:25 08/26/23 12:25
[2023-08-27] MEDS: amLODIPine 2.5 MG TAB PO SCH (12:01)
--- NOTE | 2023-08-27 13:25 | P.PN ---
Subjective Progress Note Date: 08/27/23 Hospital Course: Patient is a pleasant 73-year-old male with a past medical history of nicotine dependence approximately 1 pack of cigarettes or more daily for greater than 50 years. He does not follow with a PCP and does not take any medications on a daily basis. Presented to the emergency department via EMS for strokelike symptoms. Patient's last known normal was around 8 PM yesterday evening and this morning his fianc, Nicole, reports that she called him around 11:30 AM and he was unable to speak so she called EMS. Patient was found to have significant aphasia and difficulty following commands. Patient currently denies having any pain and his fiance Nicole reports patient had no complaints prior to going to bed last night and had no noted abnormalities until this morning as stated above. Upon arrival to the hospital patient underwent evaluation in the emergency department. Vital signs upon arrival show blood pressure 158/127, heart rate 82, respiratory rate 19, temp 98.1 F, and SpO2 of 98% on room air. [id number] glucose 105. EKG was completed showing normal sinus rhythm at 67 bpm with a right bundle branch block. CT brain was completed showing an acute/subacute CVA involving the left frontal lobe. CTA head was negative for acute intracranial process showing no evidence of intracranial high-grade stenosis or intracranial aneurysm. CTA neck showing no evidence of dissection of cervical internal carotid arteries or vertebral arteries or any evidence of significant stenosis at the carotid bifurcations. Labs completed and reviewed. CBC showing macrocytosis with MCV of 100.3 and thrombocytopenia with platelet count of 130. Coagulation profile showing low PTT of 20.0 otherwise normal findings. BMP showing non-anion gap metabolic acidosis with chloride of 111, bicarb of 19, and anion gap of 5. Liver profile unremarkable. Creatinine kinase normal findings at 77. Troponin was elevated at 0.079. Total protein was 6.0. Patient was admitted under our services with consultation to neurology. MRI brain without contrast showing acute/subacute CVA involving the left frontal lobe with nonspecific white matter changes. Echocardiogram with showing a preserved EF of 55 to 60% with no reported structural or valvular abnormalities. Lipid profile unremarkable and Hgb A1c 5.7%. Physical exam: Patient was seen and fully evaluated at bedside this morning. His speech continues to improve. Speech is clear, however patient still shows episodes of expressive aphasia and difficulty following more than two-step commands. Patient was able to correctly identify all 5 objects asked this morning including shoes, clock, TV, pen, and stethoscope. He denies having any complaints, questions, or needs at this time. Vital signs reviewed and stable. General: Nontoxic, no distress and appears stated age. Derm: Skin warm and dry, normal coloration for ethnicity. Head: Atraumatic, normocephalic and symmetric. Eyes: EOMs intact, no lid lag, and anicteric sclera Mouth: no lip lesions, mucus membranes moist. Minimal right-sided facial droop noted. Cardiovascular: regular rate and rhythm with normal S1S2, soft systolic murmur, positive posterior tibial pulses bilaterally, and cap refill < 2 seconds. Lungs: Respirations even, regular, and unlabored on room air. Lungs CTA bilaterally, no rhonchi, no rales, no wheezing, and no accessory muscle usage. Abdominal: soft, nontender to palpation, no guarding, no appreciable organomegaly Ext: No gross muscle atrophy, no edema, no contractures. Movement and sensation intact. Neuro: Face symmetrical. Speech clear. Mild expressive aphasia. Patient better able to follow some commands but still making difficulties with following more than 2 steps at a time. Psych: Alert and oriented to person, place, time, and situation. Appropriate and pleasant affect. Assessment and Plan of Care: Acute/subacute CVA of the left frontal lobe with significant speech deficits and difficulties following commands Elevated troponins, flat secondary to acute CVA Thrombocytopenia, resolved Non-anion gap metabolic acidosis, resolved Nicotine dependence -Neurology following, discussed plan of care with neurologist, Dr. Stoner. -Cardiology following, discussed plan of care with supervisor heat treating and cardiac [employer]. Patient scheduled for ROBERT tomorrow morning and cardiology recommending event monitor to rule out atrial fibrillation upon discharge. -MRI brain without contrast showing acute/subacute CVA involving the left frontal lobe with nonspecific white matter changes. -Echocardiogram with showing a preserved EF of 55 to 60% with no reported structural or valvular abnormalities. -Patient to remain on continuous telemetry monitoring. -Lipid profile unremarkable and Hgb A1c 5.7%. -NIH stroke scale with neuro checks every 4 hours and as needed -Continue aspirin 81 mg daily, Plavix 75 mg daily and atorvastatin 80 mg daily. -PT/OT following recommending inpatient rehab. Patient was evaluated by Dr. Chun and has been accepted for inpatient rehab. Pending insurance authorization. -Speech and language pathologist consulted for evaluation. -Fall precautions and provide pt with assistance as needed. -Order placed for nicotine patch 21 mg daily. Strongly recommend smoking cessation. Data and imaging reviewed: -MRI brain without contrast showing acute/subacute CVA involving the left frontal lobe with nonspecific white matter changes. Labs completed and reviewed. CBC unremarkable with WBC count of 10.3, hemoglobin 16.1, and platelet count of 298.. BMP showing sodium 135, potassium 4.2, chloride of 104, bicarb of 26, and anion gap of 5. Renal function unremarkable. Liver profile normal findings. TSH was 1.040. Troponins trended overnight and flat resulting at 0.079, 0.067, and 0.068. Vital signs reviewed. Blood pressure 174/78, heart rate 73, respiratory rate 16, temp 96.9 F, and SpO2 of 93% on room air. If patient continues to have elevated blood pressures may consider starting patient on antihypertensive tomorrow morning. CODE STATUS: Full code DVT prophylaxis: Lovenox Anticipated discharge date: Pending completion of ROBERT and insurance authorization for inpatient rehab Anticipated discharge place: Inpatient rehab Patient was seen independently by Nurse Practitioner. This document was prepared using [employer] dictation software. Please allow for errors in tire worker while rare they do occur. Ngiel Mcclellan NP rendered care for this patient independently, reviewed the findings and plan as documented in the note above. I did not physically speak with or examine the patient on this date. Objective - Vital Signs Vital signs: Vital Signs Temp 97.1 F L 08/27/23 08:25 Pulse 98 08/27/23 08:25 Resp 14 08/27/23 08:25 BP 129/70 08/27/23 08:25 Pulse Ox 91 L 08/27/23 08:25 FiO2 Intake & Output 08/26/23 08/27/23 08/27/23 18:59 06:59 18:59 Intake Total 540 118 Output Total 900 750 Balance -360 -750 118 Weight 79.6 kg 73 kg Intake: Oral 540 118 Output: Urine 900 750 Other: Voiding Method External Catheter # Voids 2 - Labs CBC & Chem 7: 08/26/23 12:25 08/26/23 12:25 Labs: Abnormal Lab Results - Last 24 Hours (Table) 08/25/23 08/26/23 Range/Units 12:43 12:25 Plt Count 130 L (150-450) k/uL Sodium 135 L (137-145) mmol/L
--- NOTE | 2023-08-27 16:15 | P.PN ---
Subjective Progress Note Date: 08/27/23 I am following-up with patient and his fiance is at bedside and feels speech is improving. Per nurse no A-fib or flutter noted. Objective - Vital Signs Vital signs: Vital Signs Temp 97.1 F L 08/27/23 08:25 Pulse 66 08/27/23 11:30 Resp 14 08/27/23 11:30 BP 147/83 08/27/23 11:30 Pulse Ox 93 L 08/27/23 11:30 FiO2 Intake & Output 08/26/23 08/27/23 08/27/23 18:59 06:59 18:59 Intake Total 540 236 Output Total 900 750 600 Balance -360 -750 -364 Weight 79.6 kg 73 kg Intake: Oral 540 236 Output: Urine 900 750 600 Other: Voiding Method External Catheter External Catheter # Voids 2 - Exam General: Sitting up in his bed eating and is not in acute distress. Neuro: Limited. Patient is awake, alert. Has expressive aphasia. No facial weakness. Motor: He lifting all extremities above gravity equally. Normal tone and bulk. Reflex: 2+ throughout. Plantars: Mute bilaterally. In our facility some of the workup consisted of: Lipid panel is triglyceride 87, cholesterol is 163, LDL is 95 and HDL is 49 Hemoglobin A1c is 5.7 TSH: 1.040 CT of the head is reported as acute/subacute CVA involving the left frontal lobe. I personally reviewed the CT and I do appreciate the changes over the left frontal suggestive of likely stroke. CT angiography of the head and neck is reported as no evidence of dissection of cervical carotid artery or vertebral artery or any evidence of significant stenosis at the carotid bifurcation. No evidence of intracranial high-grade stenosis or intracranial aneurysm. EKG is sinus rhythm. 2D echo is reported as technically difficult study. Normal left ventricular size systolic function. The very limited Doppler study. MRI of the brain is reported as acute/subacute CVA involving the left frontal in the same area seen on the CT. Nonspecific white matter changes, likely secondary due to small vessel ischemic disease. - Labs CBC & Chem 7: 08/26/23 12:25 08/26/23 12:25 Assessment and Plan Assessment: This is a 73-year-old gentleman who presents because of severe aphasia. Per fianc she communicate with him around 11:30 AM via text and he was not making sense so she called him and he had very speech difficulty. Last normal she spoke with him was 1 AM today and she is unsure what time he went to bed which she usually goes to bed at [address] of the head shows acute to subacute stroke over the left frontal. Code stroke was activated no IV thrombolytic and no intervention recommended. Acute to subacute ischemic stroke (left frontal) and the patient has severe expressive aphasia---today there is improvement in speech compared to yesterday. Unknown etiology of stroke at this time. Tobacco use Plan: Continue aspirin 325 daily, Plavix 75 mg daily. Patient was not on any antiplatelets prior to this. Continue Lipitor 80 mg daily and was not on any statin prior to this. Cardiology consulted for a transesophageal echocardiogram Recommend a 30-day event monitor of unknown source of the stroke to rule out any A-fib or flutter. Continue neurochecks Cardiac monitoring Recommend permissive hypertension for 24 to 48 hours and treat the blood pressure of the systolic blood pressure is more than 220 and diastolic is more than 110. PT, OT and T[employer] WAGON OPERATOR are consulted Will defer the rest of the medical management the primary team Was counseled on tobacco cessation. For DVT prophylaxis patient is on Lovenox Plan discussed with the patient and his fiance was at bedside as well as the primary team nurse practitioner. Time with Patient: Less than 30
[2023-08-28] MEDS: fentaNYL (PF) 50 MCG/ML 2 ML AMP IVP ONE (08:13)
[2023-08-28] MEDS: MIDAZOLAM 2 MG/2 ML VIAL IVP ONE (08:13)
[2023-08-28] MEDS: BENZOCAINE SPRAY 1 CAN TOPICAL ONE (08:15)
[2023-08-28] MEDS: SODIUM CHLORIDE 0.9% 1,000 ML IV ONE (08:28)
[2023-08-28 08:30] LABS: HCT 49.1 % (39.0-53.0); HGB 15.6 gm/dL (13.0-17.5); MCH 32.2 pg (25.0-35.0); MCHC 31.8 g/dL (31.0-37.0); MCV 101.1 fL (80.0-100.0); Mean Platelet Volume 7.3; Platelet Count 283 k/uL (150-450); RBC 4.86 m/uL (4.30-5.90); RDW 12.9 % (11.5-15.5)
--- NOTE | 2023-08-28 08:43 | P.TEE ---
Date of Procedure: 08/28/23 Description of Procedure(s): Procedure performed: 1. Transesophageal Echocardiogram with color flow doppler, pulsed wave doppler and continuous wave doppler 2. Moderate conscious sedation. Sedation time 15 mins. 3. Bubble Study Indications: CVA Consent: I have discussed the risks, benefits and alternative therapies for the above-mentioned procedure. The patient has indicated understanding and acceptance of the risks of the procedure. Signed consent was obtained and was placed in the paper chart. Procedural Steps: Timeout was performed in usual fashion. Patient's heart rate, blood pressure, oxygen saturation and ECG were monitored. Benzocaine was sprayed liberally in the back of the throat. Bite block was placed between the jaw. 3 mg of Versed and 50 mcg of Fentanyl were administered intravenously. After achieving appropriate moderate conscious sedation, ROBERT probe was advanced without difficulty and without any immediate complications to the esophagus. ROBERT study was performed with color flow doppler, pulsed wave doppler and continuous wave doppler. The probe was then removed. Patient tolerated the procedure well. Patient was transferred to the post procedure area in stable and satisfactory condition. Throughout the procedure patient's heart rate, blood pressure, oxygen saturation and ECG were monitored. Total sedation time 15 mins. Complications: none FINDINGS Left Atrium: Mild left atrial dilatation. No evidence of mass or thrombus seen Left Atrial Appendage: No evidence of thrombus or mass seen in BRANDYN Inter atrial septum: Intact inter-atrial septum with no evidence of atrial septal defect or patent foramen ovale. No evidence of right to left intracardiac shunting on bubble study Left Ventricle: Normal global LV size and systolic function Right Atrium: Normal overall RA size Right Ventricle: Normal global RV size and systolic function Aortic Valve: Trileaflet, calcific thickening of valve leaflets. Valve sclerosis with no significant stenosis on color Doppler Mitral Valve: Struturally normal. Trace mitral regurgitation Pulmonic Valve: Not well visualized. Tricuspid Valve: Mild tricuspid regurgitation Ascending aorta, Aortic root and Aortic arch: Aortic root 3.8 cm. Ascending aorta 3.2 cm. Normal size aortic root and ascending aorta. Mild atherosclerosis noticed. Descending aorta: Mild intimal thickening. No evidence of large atheroma or bulky calcification CONCLUSION: Negative bubble study. No evidence of PFO No evidence of thrombus in BRANDYN or left atrial appendage. Calcific aortic valve with thickening of leaflets. No significant stenosis from color Doppler. Calcific aortic valve can be an etiology of embolic stroke Mild atherosclerosis noticed in the ascending aorta. No significant valve dysfunction Normal LV size and systolic function Dante Castro MD, RPVI, FACC Thank you for allowing [facility] to participate in this patient's care. Feel free to reach out in case of any followup questions.
[2023-08-28 08:58] LABS: ALT 14 U/L (4-49); AST 27 U/L (17-59); African American GFR (CKD) >90 (>60 ml/min/1.73 sqM); Albumin 3.6 g/dL (3.5-5.0); Alkaline Phosphatase 84 U/L (38-126); Anion Gap 9 mmol/L; Blood Urea Nitrogen 11 mg/dL (9-20); Calcium 8.8 mg/dL (8.4-10.2); Carbon Dioxide 21 mmol/L (22-30); Chloride 104 mmol/L (98-107); Glucose 76 mg/dL (74-99); Magnesium 1.9 mg/dL (1.6-2.3); Non-African American GFR(CKD) >90 (>60 ml/min/1.73 sqM); Potassium 4.3 mmol/L (3.5-5.1); Sodium 134 mmol/L (137-145); Total Protein 6.2 g/dL (6.3-8.2)
[2023-08-28] MEDS: fentaNYL (PF) 50 MCG/ML 2 ML AMP ONE (09:13)
--- NOTE | 2023-08-28 13:00 | P.PN ---
Subjective Progress Note Date: 08/28/23 I am following-up with patient and he is accompanied with his fiance who feels his speech is better but not back to baseline. He acknowledges he is improving. Had head ROBERT today. Objective - Vital Signs Vital signs: Vital Signs Temp 97.7 F 08/28/23 08:00 Pulse 70 08/28/23 12:00 Resp 16 08/28/23 12:00 BP 135/75 08/28/23 12:00 Pulse Ox 93 L 08/28/23 12:00 FiO2 Intake & Output 08/27/23 08/28/23 08/28/23 18:59 06:59 18:59 Intake Total 476 50 Output Total 600 800 Balance -124 -800 50 Weight 77.5 kg Intake: IV 50 Oral 476 Output: Urine 600 800 Other: Voiding Method External Catheter External Catheter External Catheter - Exam General: Sitting up in his bed eating and is not in acute distress. Neuro: Limited. Patient is awake, alert, oriented to self, place. He stated the year is 1923 the after stated 2003. Has expressive aphasia but better compared to initial presentation.. Pupils are round, equal and reactive to light. Visual starkey are full to confrontation. No facial weakness. No dysarthria. Motor: Strength is 5/5. Normal tone and bulk. Reflex: 2+ throughout. Plantars: Mute bilaterally. In our facility some of the workup consisted of: Lipid panel is triglyceride 87, cholesterol is 163, LDL is 95 and HDL is 49 Hemoglobin A1c is 5.7 TSH: 1.040 CT of the head is reported as acute/subacute CVA involving the left frontal lobe. I personally reviewed the CT and I do appreciate the changes over the left frontal suggestive of likely stroke. CT angiography of the head and neck is reported as no evidence of dissection of cervical carotid artery or vertebral artery or any evidence of significant st enosis at the carotid bifurcation. No evidence of intracranial high-grade stenosis or intracranial aneurysm. EKG is sinus rhythm. 2D echo is reported as technically difficult study. Normal left ventricular size systolic function. The very limited Doppler study. MRI of the brain is reported as acute/subacute CVA involving the left frontal in the same area seen on the CT. Nonspecific white matter changes, likely secondary due to small vessel ischemic disease. ROBERT: Negative bubble study. No evidence of PFO No evidence of thrombus in BRANDYN or left atrial appendage. Calcific aortic valve with thickening of leaflets. No significant stenosis from color Doppler. Calcific aortic valve can be an etiology of embolic stroke Mild atherosclerosis noticed in the ascending aorta. No significant valve dysfunction Normal LV size and systolic function - Labs CBC & Chem 7: 08/28/23 07:16 08/28/23 07:16 Labs: Abnormal Lab Results - Last 24 Hours (Table) 08/28/23 08/28/23 Range/Units 07:16 07:16 MCV 101.1 H (80.0-100.0) fL Sodium 134 L (137-145) mmol/L Carbon Dioxide 21 L (22-30) mmol/L Total Protein 6.2 L (6.3-8.2) g/dL Assessment and Plan Assessment: This is a 73-year-old gentleman who presents because of severe aphasia. Per jared she communicate with him around 11:30 AM via text and he was not making sense so she called him and he had very speech difficulty. Last normal she spoke with him was 1 AM today and she is unsure what time he went to bed which she usually goes to bed at [address] of the head shows acute to subacute stroke over the left frontal. Code stroke was activated no IV thrombolytic and no intervention recommended. Acute to subacute ischemic stroke (left frontal) and the patient has severe expressive aphasia---today there is improvement in speech compared to yesterday. Unknown etiology of stroke at this time. ROBERT is negative for PFO or thrombus in left atrial appendage. Tobacco use Plan: Continue aspirin 325mg daily, Plavix 75 mg daily. Patient was not on any antiplatelets prior to this. Recommend dual antiplatelets for 21 days and after 21 stop Plavix but contue ASA indefinitely. Continue Lipitor 80 mg daily and was not on any statin prior to this. Recommend a 30-day event monitor of unknown source of the stroke to rule out any A-fib or flutter. Continue neurochecks Cardiac monitoring Recommend normotensive. PT, OT and SEMAPHORE OPERATOR are consulted Will defer the rest of the medical management the primary team Was counseled on tobacco cessation. For DVT prophylaxis patient is on Lovenox Upon discharge, recommend the patient to follow-up with neurologist as outpatient within 2 weeks. Plan discussed with the patient and his fiance was at bedside as well as the primary team nurse practitioner. There is no further neurological work-up. Will sign off. Please reconsult if needed. Time with Patient: Less than 30
--- NOTE | 2023-08-28 13:18 | P.PN ---
Subjective Progress Note Date: 08/28/23 Hospital Course: Patient is a pleasant 73-year-old male with a past medical history of nicotine dependence approximately 1 pack of cigarettes or more daily for greater than 50 years. He does not follow with a PCP and does not take any medications on a daily basis. Presented to the emergency department via EMS for strokelike symptoms. Patient's last known normal was around 8 PM yesterday evening and this morning his fianc, Nicole, reports that she called him around 11:30 AM and he was unable to speak so she called EMS. Patient was found to have significant aphasia and difficulty following commands. Patient currently denies having any pain and his fiance Nicole reports patient had no complaints prior to going to bed last night and had no noted abnormalities until this morning as stated above. Upon arrival to the hospital patient underwent evaluation in the emergency department. Vital signs upon arrival show blood pressure 158/127, heart rate 82, respiratory rate 19, temp 98.1 F, and SpO2 of 98% on room air. Nonpa-io-nrcq glucose 105. EKG was completed showing normal sinus rhythm at 67 bpm with a right bundle branch block. CT brain was completed showing an acute/subacute CVA involving the left frontal lobe. CTA head was negative for acute intracranial process showing no evidence of intracranial high-grade stenosis or intracranial aneurysm. CTA neck showing no evidence of dissection of cervical internal carotid arteries or vertebral arteries or any evidence of significant stenosis at the carotid bifurcations. Labs completed and reviewed. CBC showing macrocytosis with MCV of 100.3 and thrombocytopenia with platelet count of 130. Coagulation profile showing low PTT of 20.0 otherwise normal findings. BMP showing non-anion gap metabolic acidosis with chloride of 111, bicarb of 19, and anion gap of 5. Liver profile unremarkable. Creatinine kinase normal findings at 77. Troponin was elevated at 0.079. Total protein was 6.0. Patient was admitted under our services with consultation to neurology. MRI brain without contrast showing acute/subacute CVA involving the left frontal lobe with nonspecific white matter changes. Echocardiogram with showing a preserved EF of 55 to 60% with no reported structural or valvular abnormalities. Lipid profile unremarkable and Hgb A1c 5.7%. ROBERT completed negative for PFO. Cardiology consulted and recommending event monitor placement. Physical exam: Vital signs reviewed and stable. General: Nontoxic, no distress and appears stated age. Derm: Skin warm and dry, normal coloration for ethnicity. Head: Atraumatic, normocephalic and symmetric. Eyes: EOMs intact, no lid lag, and anicteric sclera Mouth: no lip lesions, mucus membranes moist. Cardiovascular: regular rate and rhythm with normal S1S2, soft systolic murmur, positive posterior tibial pulses bilaterally, and cap refill < 2 seconds. Lungs: Respirations even, regular, and unlabored on room air. Lungs CTA bilaterally, no rhonchi, no rales, no wheezing, and no accessory muscle usage. Abdominal: soft, nontender to palpation, no guarding, no appreciable organomegaly Ext: No gross muscle atrophy, no edema, no contractures. Movement and sensation intact. Neuro: Face symmetrical. Speech clear. Mild expressive aphasia. Patient better able to follow some commands but still having cognitive impairment with episodes of confusion and making difficulties with following more than 2 steps at a time. Psych: Alert and oriented to person, place, time, and situation. Appropriate and pleasant affect. Assessment and Plan of Care: Acute/subacute CVA of the left frontal lobe with significant speech deficits and difficulties following commands Elevated troponins, flat secondary to acute CVA Thrombocytopenia, resolved Non-anion gap metabolic acidosis, resolved Nicotine dependence -Neurology following, discussed plan of care with neurologist, Dr. Stoner. -Cardiology following, discussed plan of care with chemical plant operator and cardiac CAD DEVELOPER. Patient scheduled for ROBERT tomorrow morning and cardiology recommending event monitor to rule out atrial fibrillation upon discharge. -MRI brain without contrast showing acute/subacute CVA involving the left frontal lobe with nonspecific white matter changes. -Echocardiogram with showing a preserved EF of 55 to 60% with no reported structural or valvular abnormalities. -Patient to remain on continuous telemetry monitoring. -Lipid profile unremarkable and Hgb A1c 5.7%. -NIH stroke scale with neuro checks every 4 hours and as needed -Continue aspirin 81 mg daily, Plavix 75 mg daily and atorvastatin 80 mg daily. -PT/OT following recommending inpatient rehab. Patient was evaluated by Dr. Chun and has been accepted for inpatient rehab. Pending insurance authorization. -Speech and language pathologist consulted for evaluation. -Fall precautions and provide pt with assistance as needed. -Order placed for nicotine patch 21 mg daily. Strongly recommend smoking cessation. Data and imaging reviewed: Labs completed and reviewed. CBC unremarkable with WBC count of 10.3, hemoglobin 16.1, and platelet count of 298.. BMP showing sodium 135, potassium 4.2, chloride of 104, bicarb of 26, and anion gap of 5. Renal function unrem arkable. Liver profile normal findings. TSH was 1.040. Troponins trended overnight and flat resulting at 0.079, 0.067, and 0.068. Vital signs reviewed. Blood pressure 174/78, heart rate 73, respiratory rate 16, temp 96.9 F, and SpO2 of 93% on room air. If patient continues to have elevated blood pressures may consider starting patient on antihypertensive tomorrow morning. CODE STATUS: Full code DVT prophylaxis: Lovenox Anticipated discharge date: Pending insurance authorization for inpatient rehab Anticipated discharge place: Inpatient rehab Patient was seen independently by Nurse Practitioner. This document was prepared using [employer] dictation software. Please allow for errors in vice president for instruction while rare they do occur. Nigel Mcclellan CAD DEVELOPER rendered care for this patient independently, reviewed the findings and plan as documented in the note above. I did not physically speak with or examine the patient on this date. Objective - Vital Signs Vital signs: Vital Signs Temp 97.9 F 08/27/23 20:33 Pulse 65 08/28/23 08:31 Resp 18 08/28/23 08:31 BP 141/80 08/28/23 08:31 Pulse Ox 96 08/28/23 08:31 FiO2 Intake & Output 08/27/23 08/28/23 08/28/23 18:59 06:59 18:59 Intake Total 476 50 Output Total 600 800 Balance -124 -800 50 Weight 77.5 kg Intake: IV 50 Oral 476 Output: Urine 600 800 Other: Voiding Method External Catheter External Catheter - Labs CBC & Chem 7: 08/28/23 07:16 08/28/23 07:16 Labs: Abnormal Lab Results - Last 24 Hours (Table) 08/28/23 Range/Units 07:16 MCV 101.1 H (80.0-100.0) fL
--- NOTE | 2023-08-28 15:00 | P.PN ---
Subjective Progress Note Date: 08/28/23 Reason for Consult (text): ROBERT History of present illness: This is a 73-year-old male with no previous past medical history. We have been asked to evaluate the patient for ROBERT. Patient presented to the hospital on 08/24 with strokelike symptoms involving speech and has been diagnosed with acute to subacute ischemic stroke in the left frontal lobe with expressive aphasia. We have been asked to evaluate the patient for ROBERT to rule out cardiac source of stroke. Patient admits to smoking. He denies having any chest pain or shortness of breath. He still has some expressive aphasia but apparently this is improved. Blood pressure 158/77, heart rate 64, pulse ox 92% on room air. EKG: Sinus rhythm with incomplete right bundle branch block Chest x-ray: No acute process Laboratory studies: WBC 10.3, hemoglobin 16.1. Potassium 4.2, creatinine 0.72. Troponins 0.079, 0.067 and 0.068. Triglycerides 87, cholesterol 163, LDL 95. TSH 1.04. MRI of the brain reveals acute/subacute CVA involving the left frontal lobe. Nonspecific white matter changes secondary to small vessel ischemic disease. CTA head and neck revealed no evidence of dissection of the cervical internal carotid arteries or vertebral arteries or any evidence of significant stenosis at the carotid bifurcations. No evidence of intracranial high-grade stenosis or intracranial aneurysm. Echocardiogram is a technically difficult study. Normal left ventricular size and systolic function. Very limited Doppler study. Home cardiac medications: None 08/27 This morning, patient underwent ROBERT with Dr. Castro which revealed a negative bubble study, no evidence of PFO. No evidence of thrombus in the left atrium or left atrial appendage. Calcified aortic valve with thickening of the leaflets. No stenosis. Calcified aortic valve can be etiology of embolic stroke. Mild atherosclerosis noticed in the ascending aorta. No significant valve dysfunction. Normal LV size and systolic function. Patient continues to have some expressive aphasia. We have ordered event monitor for 30 days which patient will receive prior to discharge. Patient is planning to go to inpatient rehab. Physical examination: Gen: This is a 73-year-old male in no acute distress VS: reviewed HEENT: Head is atraumatic, normocephalic. Pupils equal, round. Sclerae is anicteric. NECK: Supple. No JVD. LUNGS: Clear to auscultation. No wheezes or rhonchi. No intercostal retractions. HEART: Regular rate and rhythm. No murmur. ABDOMEN: Soft No tenderness. EXTREMITIES: No pedal edema. No calf tenderness. NEUROLOGICAL: Patient is awake, alert and oriented x3. Assessment: Acute or subacute ischemic CVA involving the left frontal lobe likely embolic Hypertension Elevated troponins, flat secondary to acute CVA Tobacco use and dependence Plan: Event monitor, 30 days prior to discharge Smoking cessation. Patient will be provided with the [employer] quit line information at discharge. Patient is cleared for discharge from cardiology and may follow-up in the office in [address] Castro. Cardiology will sign off this case and follow on an as-needed basis. Please reconsult for any new concerns. Patient may follow-up in the office in one to 2 weeks. Nurse practitioner note has been reviewed, I agree with documented findings and plan of care. Patient was seen and examined. Objective - Vital Signs Vital signs: Vital Signs Temp 97.7 F 08/28/23 08:00 Pulse 70 08/28/23 12:00 Resp 16 08/28/23 12:00 BP 135/75 08/28/23 12:00 Pulse Ox 93 L 08/28/23 12:00 FiO2 Intake & Output 08/27/23 08/28/23 08/28/23 18:59 06:59 18:59 Intake Total 476 50 Output Total 600 800 Balance -124 -800 50 Weight 77.5 kg Intake: IV 50 Oral 476 Output: Urine 600 800 Other: Voiding Method External Catheter External Catheter External Catheter - Labs CBC & Chem 7: 08/28/23 07:16 08/28/23 07:16 Labs: Abnormal Lab Results - Last 24 Hours (Table) 08/28/23 08/28/23 Range/Units 07:16 07:16 MCV 101.1 H (80.0-100.0) fL Sodium 134 L (137-145) mmol/L Carbon Dioxide 21 L (22-30) mmol/L Total Protein 6.2 L (6.3-8.2) g/dL
[2023-08-29 09:26] VITALS: TEMP 98.1
[2023-08-29 11:04] VITALS: BP 128/73; PULSE 89; RESP 17
--- NOTE | 2023-08-29 16:47 | P.DS ---
Providers Date of admission: 08/25/23 15:48 Expected date of discharge: 08/29/23 Attending physician: Corbin Kemp MD Consults: 08/25/23 15:32 Consult Physician Routine Consulting Provider: Zaki Stoner Consult Reason/Comments: acute/subacute CVA Do you want consulting provider notified?: Yes 08/26/23 10:07 Consult Physician Routine Consulting Provider: Romaine Chun Consult Reason/Comments: Eval for IPR Do you want consulting provider notified?: Yes 08/26/23 18:24 Consult Physician Routine Consulting Provider: Flash Parikh Consult Reason/Comments: ROBERT, acute CVA Do you want consulting provider notified?: Yes Primary care physician: Stated None Hospital Course: Discharge Diagnosis: 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 He does not follow with a PCP and does not take any medications on a daily basis. Presented to the emergency department via EMS for strokelike symptoms. Patient's last known normal was around 8 PM yesterday evening and this morning his fiancNicole, reports that she called him around 11:30 AM and he was unable to speak so she called EMS. Patient was found to have significant aphasia and difficulty following commands. Patient currently denies having any pain and his fivadim Rivera reports patient had no complaints prior to going to bed last night and had no noted abnormalities until this morning as stated above. Upon arrival to the hospital patient underwent evaluation in the emergency department. Vital signs upon arrival show blood pressure 158/127, heart rate 82, respiratory rate 19, temp 98.1 F, and SpO2 of 98% on room air. Xgmhx-lh-crug glucose 105. EKG was completed showing normal sinus rhythm at 67 bpm with a right bundle branch block. CT brain was completed showing an acute/subacute CVA involving the left frontal lobe. CTA head was negative for acute intracranial process showing no evidence of intracranial high-grade stenosis or intracranial aneurysm. CTA neck showing no evidence of dissection of cervical internal carotid arteries or vertebral arteries or any evidence of significant stenosis at the carotid bifurcations. Labs completed and reviewed. CBC showing macrocytosis with MCV of 100.3 and thrombocytopenia with platelet count of 130. Coagulation profile showing low PTT of 20.0 otherwise normal findings. BMP showing non-anion gap metabolic acidosis with chloride of 111, bicarb of 19, and anion gap of 5. Liver profile unremarkable. Creatinine kinase normal findings at 77. Troponin was elevated at 0.079. Total protein was 6.0. Patient was admitted under our services with consultation to neurology. MRI brain without contrast showing acute/subacute CVA involving the left frontal lobe with nonspecific white matter changes. Echocardiogram with showing a preserved EF of 55 to 60% with no reported structural or valvular abnormalities. Lipid profile unremarkable and Hgb A1c 5.7%. ROBERT completed negative for PFO. Cardiology consulted and recommending event monitor placement. Monitor was placed and patient was cleared from neurology and cardiology perspective. Initial plan was for patient to go to inpatient rehab, however insurance authorization was not obtained and went for a peer to peer and insurance denied rehabilitation or ECF stay at this time stating patient does no require daily rehab/PT and therapy can be done on outpatient basis. Patient was updated on insurance recommendations and in agreement to be discharged home. Medically, patient is stable at this time. 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 Patient discharged home with event monitor and walker. Physical exam: Vital signs reviewed and stable. General: Nontoxic, no distress and appears stated age. Derm: Skin warm and dry, normal coloration for ethnicity. Head: Atraumatic, normocephalic and symmetric. Eyes: EOMs intact, no lid lag, and anicteric sclera Mouth: no lip lesions, mucus membranes moist. Cardiovascular: regular rate and rhythm with normal S1S2, soft systolic murmur, positive posterior tibial pulses bilaterally, and cap refill < 2 seconds. Lungs: Respirations even, regular, and unlabored on room air. Lungs CTA bilaterally, no rhonchi, no rales, no wheezing, and no accessory muscle usage. Abdominal: soft, nontender to palpation, no guarding, no appreciable organomegaly Ext: No gross muscle atrophy, no edema, no contractures. Movement and sensation intact. Neuro: Face symmetrical. Speech clear. Mild expressive aphasia. Patient better able to follow some commands but still having cognitive impairment with episodes of confusion and making difficulties with following more than 2 steps at a time. Psych: Alert and oriented to person, place, time, and situation. Appropriate and pleasant affect. A total of 38 minutes of time were spent preparing this complex discharge summary. Pt was discharged on 08/29/2023 at 11:59 AM. Patient was seen independently by Nurse Practitioner. This document was prepared using [employer] dictation software. Please allow for errors in filters assembler while rare they do occur. I reviewed the documentation as provided by the YUDITH above, who is the original author of this note. I agree with the documented assessment and plan, with the following changes: none Patient Condition at Discharge: Stable Plan - Discharge Summary Discharge Rx Participant: Yes New Discharge Prescriptions: New Aspirin 81 mg PO DAILY 30 Days #30 tab Nicotine 21Mg/24Hr Patch [Habitrol] 1 patch TRANSDERM DAILY 30 Days #30 patch Pantoprazole [Protonix] 40 mg PO AC-BRKFST 30 Days #30 tab Atorvastatin [Lipitor] 80 mg PO DAILY 30 Days #30 tab amLODIPine [Norvasc] 2.5 mg PO DAILY 30 Days #30 tab Clopidogrel [Plavix] 75 mg PO DAILY 21 Days #21 tab Discharge Medication List Aspirin 81 mg PO DAILY 30 Days #30 tab 08/29/23 [Rx] Atorvastatin [Lipitor] 80 mg PO DAILY 30 Days #30 tab 08/29/23 [Rx] Clopidogrel [Plavix] 75 mg PO DAILY 21 Days #21 tab 08/29/23 [Rx] Nicotine 21Mg/24Hr Patch [Habitrol] 1 patch TRANSDERM DAILY 30 Days #30 patch 08/29/23 [Rx] Pantoprazole [Protonix] 40 mg PO AC-BRKFST 30 Days #30 tab 08/29/23 [Rx] amLODIPine [Norvasc] 2.5 mg PO DAILY 30 Days #30 tab 08/29/23 [Rx] Follow up Appointment(s)/Referral(s): Dante Castro MD [Medical Doctor] - 4 Weeks (CALL AND MAKE YUDITH! (HEART DOCTOR)) Sera Gan MD [REFERRING] - 1-2 Days (Schedule first available appointment with Dr. Gan or Dr. Glass for post-hospital follow up and need to establish care with a PCP as soon as possible. ) Margaret Enamorado MD [REFERRING] - 1 Week (CALL AND MAKE YUDITH! (BRAIN DOCTOR)) [facility] [NON-STAFF] - (Home care, will follow up with you Thursday! ) Patient Instructions/Handouts: Global Aphasia Exercises (DC), Ischemic Stroke (DC) Activity/Diet/Wound Care/Special Instructions: Activity: As tolerated. Take breaks as needed. Diet: Heart healthy and carb consistent diet. Avoid salts, or foods with hidden salts such as canned or boxed foods and frozen dinners. Extra salt makes your heart work harder and traps the fluid in your body for longer. Special Instructions: Take all of your medications as directed and remember to keep all of your doctor's appointments and follow-up as needed. You are being discharged home with an event monitor in place, these findings are being [facility] with Dr. Castro. You will need to follow-up in his office in 4 weeks. A message was left on the voicemail for Dr. Gan's office regarding need for first available appointment, if you do not hear from them you should call the office first thing Thursday to schedule the first available appointment for postdischarge follow-up and establishing care with a PCP. Thank you for allowing us to participate in your care, it was truly a pleasure having you for our patient!!! Discharge/Stand Alone Forms: Who Do I Call?, Help In The Home, Area PCPs Discharge Disposition: HOME WITH HOME HEALTH SERVICES
== END 2023-08-29 13:18 | disposition home health service (06) | DRG 65 ==
LOC: EC 12:37 → 3SCARD 15:48
PROVIDERS: ADMIT Student in an Organized Health Care Education/Training Program; ATTEND Student in an Organized Health Care Education/Training Program
PROC: B246ZZ4 Ultrasonography of Right and Left Heart, Transesophageal (ICD-10-PCS; principal; 2023-08-28 09:15)
DX: I63.40 Cerebral infarction due to embolism of unspecified cerebral artery (principal); E87.20 Acidosis, unspecified; I45.10 Unspecified right bundle-branch block; I69.320 Aphasia following cerebral infarction; R47.01 Aphasia; F17.210 Nicotine dependence, cigarettes, uncomplicated; R29.810 Facial weakness; I10 Essential (primary) hypertension; D69.6 Thrombocytopenia, unspecified; Z71.6 Tobacco abuse counseling
CPT/HCPCS: 36415; 70450; 70496; 70498; 70551; 71046; 80053; 80061; 82550; 83036; 83735; 84443; 84484; 85025; 85027; 85610; 85730; 93005; 93270; 93306; 93312; 93320; 93325

== ENCOUNTER → 2024-05-31 | Outpatient (CLI) | payer MEDICARE ==
[2024-05-31 15:26] LABS: HCT 46.1 % (39.6-50.0); HGB 14.9 g/dL (13.0-17.0); MCH 30.7 pg (27.0-32.0); MCHC 32.3 g/dL (32.0-37.0); MCV 94.9 FL (80.0-97.0); Mean Platelet Volume 8.8 FL (9.5-12.2); NRBC Per 100 WBC 0 X 10*3/uL (0.00-0.01); Platelet Count 347 X 10*3/uL (140-440); RBC 4.86 X 10*6/uL (4.40-5.60); RDW 14.3 % (11.5-14.5); WBC 6.78 X 10*3/uL (4.50-10.00)
[2024-05-31 15:50] LABS: NT-Pro-B-Type Natriuretic Pept 70 pg/mL (0-125)
[2024-05-31 15:56] LABS: ALT 29 U/L (10-49); AST 25 U/L (14-35); Albumin 4.2 g/dL (3.8-4.9); Albumin/Globulin Ratio 1.83 Ratio (1.60-3.17); Alkaline Phosphatase 113 U/L (41-126); Calcium 9.3 mg/dL (8.7-10.3); Chloride 106 mmol/L (96-109); Chol/HDL Ratio 2.72 Ratio; Globulin 2.3 g/dL (1.6-3.3); Glucose 108 mg/dL (70-110); LDL Cholesterol,Calculated 67.8 mg/dL (0.0-131.0); Potassium 4.9 mmol/L (3.5-5.5); Sodium 142 mmol/L (135-145); Total Bilirubin 0.4 mg/dL (0.3-1.2); Total Protein 6.5 g/dL (6.2-8.2); VLDL Calculation 15.02 mg/dL (5.00-40.00)
== END | disposition home or self-care (01) ==
LOC: LABWHC1 09:25
PROVIDERS: ATTEND Student in an Organized Health Care Education/Training Program
DX: I50.9 Heart failure, unspecified (principal); E11.9 Type 2 diabetes mellitus without complications; E78.5 Hyperlipidemia, unspecified; E03.9 Hypothyroidism, unspecified; D72.9 Disorder of white blood cells, unspecified; R79.89 Other specified abnormal findings of blood chemistry
CPT/HCPCS: 36415; 80053; 80061; 83036; 83880; 84443; 85027

== ENCOUNTER → 2024-06-13 | Day surgery (SDC) | payer MEDICARE ==
[~2024-06-13] MED LIST: ALPRAZolam 0.25 MG TAB PO PRN; ALPRAZolam 0.5 MG TAB PO PRN; ASPIRIN 325 MG TAB PO STA; NITROGLYCERIN SL TABS 0.4 MG TAB SUBLINGUAL PRN; RX INFO: IV CONTRAST WAS GIVEN 1 EACH MISC MISCELLANE PRN; SODIUM CHLORIDE 0.9% 1,000 ML IV SCH
[2024-06-13] MEDS: SODIUM CHLORIDE 0.9% 1,000 ML in EMPTY BAG 1 BAG IV SCH (12:11)
[2024-06-13] MEDS: HEPARIN SODIUM,PORCINE (1 ML) 2,500 UNIT in SODIUM CHLORIDE 0.9% 250 ML IRRIGATION PRN (12:11)
[2024-06-13] MEDS: HEPARIN SODIUM,PORCINE 10,000 UNIT in SODIUM CHLORIDE 0.9% 1,000 ML IRRIGATION PRN (12:11)
[2024-06-13] MEDS: IV FLUID CONTINUATION 1,000 ML IV ONE ×2 (12:15→12:53)
[2024-06-13] MEDS: VERAPAMIL SYRINGE (5 MG/10 ML) INTRAARTER ONE (12:28)
[2024-06-13] MEDS: MIDAZOLAM 2 MG/2 ML VIAL IVP ONE (12:28)
[2024-06-13] MEDS: fentaNYL (PF) 50 MCG/ML 2 ML AMP IVP ONE (12:28)
[2024-06-13] MEDS: LIDOCAINE 1%-EPI 1:100,000 20 ML VIAL SQ ONE (12:28)
[2024-06-13] MEDS: HEPARIN SODIUM 1,000 UN/ML (10ML VL) IV ONE (12:34)
[2024-06-13] MEDS: IOPAMIDOL-370 100ML BTL INJ ONE (12:44)
--- NOTE | 2024-06-13 13:00 | P.CARDCATH ---
Date of Procedure: 06/13/24 Description of Procedure: DIAGNOSTIC CORONARY ANGIOGRAPHY and LEFT HEART CATH REPORT PROCEDURES PERFORMED: Left heart catheterization Selective coronary angiography Moderate conscious sedation 15 mins [Ultrasound assisted] Right radial access INDICATION: Abnormal stress test BRIEF HPI: 73-year-old presented to [facility] with concerns of acute CVA. Thereafter he followed up with us in the office where he was having nonspecific symptoms of atypical chest pain and some dyspnea on exertion and increased fatigue. For this we performed a dobutamine stress echocardiogram which showed stress-induced inferior wall hypokinesia. For this he was scheduled for a heart catheterization procedure CONSENT: I have explained the procedural steps of above-mentioned procedures in layman's terms to the patient. I discussed the risks (including but not limited to stroke, emergent vascular or cardiac surgery or ), benefits and alternative therapies for the above-mentioned procedure. I discussed the risks of sedation/analgesia and blood product administration (if indicated). The patient has indicated understanding and acceptance of these risks. Conscious Sedation: Patient's ECG, heart rate, blood pressure, pulse oximetry were monitored throughout the duration of procedure under my direct supervision. 1 mg Versed and 50 mcg Fentanyl were used for induction of moderate conscious sedation. Total duration of moderate concious sedation 15 minutes. PROCEDURAL DETAILS: Patient was prepped and draped in sterile fashion. 1% lidocaine was infiltrated over the right radial artery. Right radial access was obtained via modified seldinger technique. [Ultrasound was used for radial access]. Medications: 5mg of verapamil was administed in the radial sheet. 5000 Units of Heparin was administed once the catheter reached the aortic root Wires and Catheter used: J wire was advanced under fluroscopy to get to aortic root. 5 algerian JR 4 diagnostic catheter was utilized obtain left ventricular pressure and pressure gradint across aortic valve. 5 algerian JR 4 diagnostic catheter was used to selectively engage the right coronary ostium. 5 algerian JL 3.5 diagnostic catheter was utilized to selectively engage the left coronary ostium. Angiographic images were reviewed in detail. Catheter and wire were removed. Radial sheet was flushed. The right radial sheath was removed and a TR band was placed. Patent hemostasis was achieved. The patient tolerated the procedure well. Patient was t ransported back to the post catheterization holding area in stable condition. TECHNICAL DETAILS Total contrast used: Isovue [60 ml] Complications: [none] Estimated Blood loss: less than 15 ml HEMODYNAMICS: Aortic Pressure: 121/71 mmHg. LV pressure: 125/5 mmHg. LVEDP 15 mmHg. There was no significant gradient across the aortic valve. SELECTIVE CORONARY ARTERIOGRAPHY: LEFT MAIN: The left main is short and large caliber vessel. It bifurcates into the LAD and circumflex. Left main appears angiographically normal. LEFT ANTERIOR DESCENDING CORONARY ARTERY: LAD is a large caliber vessel which wraps around to the apex. Proximal LAD appears angiographically patent. Mid LAD has 40% disease. Distal LAD appears angiographically patent. It gives rise to diagonal branches which are small to medium caliber and appears angiographically patent LEFT CIRCUMFLEX CORONARY ARTERY: Dominant vessel, large caliber. Proximal LCx appears patent with mild mid irregularities. Mid LCx gives rise to a AV groove vessel and continues to bifurcate into 2 OM branches. Just prior to the bifurcation there is a 50 to 60% disease. OM 1 and OM 2 are medium caliber and appears angiographically patent with mild mid irregularities. RIGHT CORONARY ARTERY: Nondominant vessel. Proximal RCA bifurcates into a RV marginal branch and a small to medium caliber PDA. IMPRESSION: 50 to 60% mid LCx disease 40 to 50% mid LAD disease Normal LVEDP PLAN: Aggressive risk factor modification per most recent ACC/AHA guidelines. 100 cc fluids for 4 hours Discharge home in 4 hours LDL is 67, HbA1c is 5.4. Resting heart rate was in 50s at this time. I will stop his metoprolol, reduce atorvastatin to 40 mg and add metformin 500 twice daily and Jardiance 10 daily for diabetes. Follow-up in the office in 1-2 weeks. Performing Physician Dante Castro MD, FACC, RPVI Thank you for allowing [facility] to participate in this patient's care. Feel free to reach out in case of any followup questions.
[2024-06-13 19:11] VITALS: PULSE 42; RESP 14
[2024-06-13 19:23] VITALS: BP 123/64
== END ==
LOC: CATHCVL 10:32
PROVIDERS: ATTEND Student in an Organized Health Care Education/Training Program
DX: I25.119 Atherosclerotic heart disease of native coronary artery with unspecified angina pectoris (principal); R06.02 Shortness of breath; Z87.891 Personal history of nicotine dependence; Z86.73 Personal history of transient ischemic attack (TIA), and cerebral infarction without residual deficits; I10 Essential (primary) hypertension; E11.9 Type 2 diabetes mellitus without complications; E78.5 Hyperlipidemia, unspecified; J44.9 Chronic obstructive pulmonary disease, unspecified; Z79.82 Long term (current) use of aspirin
CPT/HCPCS: 93458; C1894; C1769; J2250; J1644 ×3; J3010; Q9967